=== PATIENT | male | born 1950 | race Caucasian/White ===

== ENCOUNTER 2017-05-10 12:33 | Inpatient (IN) | payer MEDICARE, BC ==
[~2017-05-10] VITALS: Ht 180.3 cm; Wt 78.2 kg
[~2017-05-10 12:33] MED LIST: IOHEXOL 350 MG/ML 100 ML BTL (for Cath Lab) OTHER ONE; IOHEXOL 350 MG/ML 50 ML BTL (for Cath Lab) OTHER ONE
[2017-05-10 12:41] VITALS: BP 130/81; PULSE 71; RESP 18; TEMP 97.9; O2SAT 100
[2017-05-10] MEDS ORDERED: SODIUM CHLORIDE 0.9% FLUSH 10 ML FLUSH IVF PRN (12:45)
[2017-05-10 12:47] VITALS: BP 130/81; PULSE 66; PULSE 68; RESP 18; TEMP 97.9; O2SAT 100
[2017-05-10 13:07] LABS: AUTOMATED NEUTROPHIL # 10.3 TH/MM3 (1.8-7.7); BASOPHIL # 0.1 TH/MM3 (0-0.2); BASOPHIL % 0.7 % (0.0-2.0); EOSINOPHIL # 0.1 TH/MM3 (0-0.4); EOSINOPHIL % 0.5 % (0.0-4.0); HEMATOCRIT 44.1 % (39.0-51.0); HEMOGLOBIN 15.2 GM/DL (13.0-17.0); LYMPH % 14.6 % (9.0-44.0); LYMPHOCYTE # 1.9 TH/MM3 (1.0-4.8); MEAN CELL VOLUME 90.3 FL (80.0-100.0); MEAN CORPUSCULAR HEMOGLOBIN 31.1 PG (27.0-34.0); MEAN CORPUSCULAR HGB CONC 34.4 % (32.0-36.0); MEAN PLATELET VOLUME 9.2 FL (7.0-11.0); MONO % 4.7 % (0.0-8.0); MONOCYTE # 0.6 TH/MM3 (0-0.9); NEUT % 79.5 % (16.0-70.0); PLATELET COUNT 175 TH/MM3 (150-450); RED BLOOD COUNT 4.88 MIL/MM3 (4.50-5.90); RED CELL DISTRIBUTION WIDTH 14.5 % (11.6-17.2); WHITE BLOOD COUNT 12.9 TH/MM3 (4.0-11.0)
[2017-05-10 13:20] LABS: PROTHROMBIN TIME - PATIENT 10.6 SEC (9.8-11.6)
--- NOTE | 2017-05-10 13:20 | PD ---
HPI Chief Complaint: Chest Pain Time Seen by Provider: 12:42 Travel History International Travel<30 days: No Contact w/Intl Traveler<30days: No Traveled to known affect area: No History of Present Illness HPI 66 y/o male presents with episode where he passed out. gave him rescue breathing but did not perform CPR per the ambulance team. When the fire team got on scene given his concerning EKG findings they called a STEMI alert. They gave him 3 nitroglycerin, aspirin, 6 of morphine and 4 Zofran. He continues to have chest pain. He states he's been having chest pain for 3 days. He states it goes down his left arm. He denies any other concurrent complaints. He denies specific modifying factors. Quality is pressure. [facility] Past Medical History Medical History: Denies Significant Hx Past Surgical History Surgical History: No Previous Surgery Social History Alcohol Use: Yes Tobacco Use: Yes Substance Use: No Allergies-Medications (Allergen,Severity, Reaction): Coded Allergies: penicillin G (Verified Allergy, Severe, Swelling, 05/10/17) Reported Meds & Prescriptions Reported Meds & Active Scripts Active No Active Prescriptions or Reported Medications Review of Systems Except as stated in HPI: all other systems reviewed are Neg Physical Exam Narrative GENERAL: 66 y/o male in no apparent distress SKIN: Focused skin assessment warm/dry. HEAD: Atraumatic. Normocephalic. EYES: Pupils equal and round. No scleral icterus. No injection or drainage. ENT: No nasal bleeding or discharge. Mucous membranes pink and moist. NECK: Trachea midline. No JVD. CARDIOVASCULAR: Regular rate and rhythm. RESPIRATORY: No accessory muscle use. Clear to auscultation. Breath sounds equal bilaterally. GASTROINTESTINAL: Abdomen soft, non-tender, nondistended. MUSCULOSKELETAL: No obvious deformities. No clubbing. No cyanosis. NEUROLOGICAL: Awake and alert. No obvious cranial nerve deficits. Motor grossly within normal limits. Normal speech. Data Data Last Documented VS Vital Signs Date Time Temp Pulse Resp B/P (MAP) Pulse Ox O2 Delivery O2 Flow Rate FiO2 05/10/17 14:03 05/10/17 12:47 66 18 100 Nasal Cannula 2.00 05/10/17 12:47 97.9 Orders Orders Electrocardiogram (05/10/17 12:42) B-Type Natriuretic Peptide (05/10/17 12:42) Ckmb (Isoenzyme) Profile (05/10/17 12:42) Complete Blood Count With Diff (05/10/17 12:42) Comprehensive Metabolic Panel (05/10/17 12:42) Magnesium (Mg) (05/10/17 12:42) Prothrombin Time / Inr (Pt) (05/10/17 12:42) Act Partial Throm Time (Ptt) (05/10/17 12:42) Troponin I (05/10/17 12:42) Chest, Single Ap (05/10/17 12:42) Ecg Monitoring (05/10/17 12:42) Bilateral Bp Monitoring (05/10/17 12:42) Iv Access Insert/Monitor (05/10/17 12:42) Oximetry (05/10/17 12:42) Sodium Chloride 0.9% Flush (Ns Flush) (05/10/17 12:45) Heparin-Ns/Pf Flush Bag (Heparin-Ns/Pf F (05/10/17 13:54) Cardiac Catheterization (05/10/17 ) Heparin-Ns/Pf Flush Bag (Heparin-Ns/Pf F (05/10/17 14:19) Midazolam Inj (Versed Inj) (05/10/17 14:19) Fentanyl Inj (Fentanyl Inj) (05/10/17 14:20) Heparin Inj (Heparin Inj) (05/10/17 14:20) Nitroglycerin Inj (Nitroglycerin Inj) (05/10/17 14:20) Verapamil Inj (Isoptin Inj) (05/10/17 14:20) Admit Order (Ed Use Only) (05/10/17 14:39) Labs Laboratory Tests Test 05/10/17 12:53 White Blood Count 12.9 TH/MM3 Red Blood Count 4.88 MIL/MM3 Hemoglobin 15.2 GM/DL Hematocrit 44.1 % Mean Corpuscular Volume 90.3 FL Mean Corpuscular Hemoglobin 31.1 PG Mean Corpuscular Hemoglobin Concent 34.4 % Red Cell Distribution Width 14.5 % Platelet Count 175 TH/MM3 Mean Platelet Volume 9.2 FL Neutrophils (%) (Auto) 79.5 % Lymphocytes (%) (Auto) 14.6 % Monocytes (%) (Auto) 4.7 % Eosinophils (%) (Auto) 0.5 % Basophils (%) (Auto) 0.7 % Neutrophils # (Auto) 10.3 TH/MM3 Lymphocytes # (Auto) 1.9 TH/MM3 Monocytes # (Auto) 0.6 TH/MM3 Eosinophils # (Auto) 0.1 TH/MM3 Basophils # (Auto) 0.1 TH/MM3 CBC Comment DIFF FINAL Differential Comment Prothrombin Time 10.6 SEC Prothromb Time International Ratio 1.0 RATIO Activated Partial Thromboplast Time 28.5 SEC Blood Urea Nitrogen 19 MG/DL Creatinine 1.02 MG/DL Random Glucose 130 MG/DL Total Protein 7.0 GM/DL Albumin 3.6 GM/DL Calcium Level 8.8 MG/DL Magnesium Level 2.0 MG/DL Alkaline Phosphatase 56 U/L Aspartate Amino Transf (AST/SGOT) 15 U/L Alanine Aminotransferase (ALT/SGPT) 20 U/L Total Bilirubin 0.4 MG/DL Sodium Level 134 MEQ/L Potassium Level 3.6 MEQ/L Chloride Level 100 MEQ/L Carbon Dioxide Level 24.8 MEQ/L Anion Gap 9 MEQ/L Estimat Glomerular Filtration Rate 73 ML/MIN Total Creatine Kinase 93 U/L Troponin I LESS THAN 0.02 NG/ML B-Type Natriuretic Peptide 9 PG/ML MDM Medical Decision Making Medical Screen Exam Complete: Yes Emergency Medical Condition: Yes Medical Record Reviewed: Yes (pmh confirmed) Interpretation(s) EKG shows ST depression without significant ST segment elevation and was sent to the gauge and weigh machine operator EMS EKG shows inferior lateral ST depression with mild aVR elevation CBC & BMP Diagram 05/10/17 12:53 Total Protein 7.0, Albumin 3.6, Calcium Level 8.8, Magnesium Level 2.0, Alkaline Phosphatase 56, Aspartate Amino Transf (AST/SGOT) 15, Alanine Aminotransferase (ALT/SGPT) 20, Total Bilirubin 0.4 Last 24 hours Impressions Chest X-Ray 05/10/17 1242 Signed Impressions: Service Date/Time: Wednesday, May 10, 2017 13:15 - CONCLUSION: 1. No acute cardiopulmonary disease. Gera Haas MD Differential Diagnosis Angina, ME, arrhythmia Narrative Course Will check blood work, EKG, chest x-ray and discuss with cardiology Patient discussed with gauge and weigh machine operator and agrees to proceed with heart catheterization. He'll be admitted to the hospital for further care Physician Communication Physician Communication dr martinez states no stemi, will come and see patient dr matrinez states no additional meds for now will likely cath and to admit to medicine dr franks agrees to admit Diagnosis Primary Impression: Unstable angina Additional Impression: Syncope Qualified Codes: R55 - Syncope and collapse Admitting Information Admitting Physician Requests: Admit Scripts No Active Prescriptions or Reported Meds Maegan Nguyen MD May 10, 2017 13:20
[2017-05-10 13:27] LABS: ALBUMIN 3.6 GM/DL (3.4-5.0); AST (GOT) 15 U/L (15-37); BICARBONATE 24.8 MEQ/L (21.0-32.0); BLOOD UREA NITROGEN 19 MG/DL (7-18); CALCIUM 8.8 MG/DL (8.5-10.1); CHLORIDE 100 MEQ/L (98-107); CREATININE 1.02 MG/DL (0.60-1.30); GLOMERULAR FILTRATION RATE 73 ML/MIN (>89); GLUCOSE,RANDOM 130 MG/DL (74-106); SODIUM (NA) 134 MEQ/L (136-145)
[2017-05-10 13:29] LABS: ALT (GPT) 20 U/L (12-78)
[2017-05-10 13:32] LABS: ALKALINE PHOSPHATASE 56 U/L (45-117); TOTAL BILIRUBIN ADULT 0.4 MG/DL (0.2-1.0); TROPONIN I LESS THAN 0.02 NG/ML (0.02-0.05)
[2017-05-10] MEDS ORDERED: HEPARIN-NS/PF FLUSH BAG 2,000 ML IV FLUSH ONE ×2 (13:54→14:19)
--- NOTE | 2017-05-10 13:59 | RADRPT ---
EXAM DATE/TIME: 05/10/2017 13:15 [place] COMPARISON: No previous studies available for comparison. INDICATIONS : Chest pain. Patient passed out and was unresponsive. MEDICAL HISTORY : None. SURGICAL HISTORY : None. ENCOUNTER: Initial ACUITY: 1 day PAIN SCORE: 5/10 LOCATION: Bilateral chest FINDINGS: A single view of the chest demonstrates the lungs to be symmetrically aerated without evidence of mas s, infiltrate or effusion. The cardiomediastinal contours are unremarkable. Osseous structures are intact. CONCLUSION: 1. No acute cardiopulmonary disease. Gera Haas MD on May 10, 2017 at 13:51 Board Certified Radiologist. This report was verified electronically.
[2017-05-10] MEDS ORDERED: MIDAZOLAM HCL 2 MG/2 ML VIAL ONE (14:19)
[2017-05-10] MEDS ORDERED: VERAPAMIL HCL 5 MG/2 ML VIAL ONE (14:20)
[2017-05-10] MEDS ORDERED: HEPARIN SODIUM - IV 10,000 UNITS/10 ML VIAL ONE (14:20)
[2017-05-10] MEDS ORDERED: NITROGLYCERIN INJ 5 ML ONE (14:20)
[2017-05-10] MEDS ORDERED: TICAGRELOR 90 MG TAB PO ONE (16:13)
[2017-05-10] MEDS ORDERED: TIROFIBAN INFUSION INJ 250 ML IV ONE (16:30)
[2017-05-10] MEDS ORDERED: TIROFIBAN INFUSION INJ 250 ML IV SCH (16:31)
[2017-05-10] MEDS ORDERED: SODIUM CHLOR 0.9% 1000 ML INJ 1,000 ML IV SCH (16:31)
[2017-05-10] MEDS ORDERED: CLOPIDOGREL 300 MG TAB ONE (16:36)
[2017-05-10] MEDS ORDERED: ACETAMINOPHEN 325 MG TAB PO PRN (16:45)
[2017-05-10] MEDS ORDERED: oxyCODONE/ACETAMINOPHEN 10 MG/325 MG TAB PO PRN (16:45)
[2017-05-10] MEDS ORDERED: oxyCODONE/ACETAMINOPHEN 5 MG/325 MG TAB PO PRN (16:45)
[2017-05-10] MEDS ORDERED: ONDANSETRON HCL 4 MG/2 ML VIAL IVP PRN (16:45)
[2017-05-10] MEDS ORDERED: MORPHINE SULFATE 2 MG/ML INJ IV PUSH PRN (16:45)
--- NOTE | 2017-05-10 16:53 | CATHPROC ---
[email or web address] HIS Report Study Information Study Number Admission Scheduled Start Study Start [id number] May 10 2017 12:33PM 05/10/2017 May 10 2017 2:08PM Study Type [place] Service Left/Possible PCI Cardiac Catheterization Admit Source Facility Department Emergency department [facility] - Senior Net C Developer Physician and Clinical Staff Initial Buck Mahoney Customs Verifier Roselia Acosta,KATIE Other Niesha Doherty,FUNERAL PLANNER TECH2 Recorder Roselyn Mansfield ,RT(R) ScrKarin Noe,RT(R) Procedures Performed Procedure Location (Site) Vessel Name Coronary Angiograms LCA Left Coronary Coronary Angiograms RCA Right Coronary Drug Eluting Inflatio OM1 Mid CIRC L Heart Cath PTCA OM1 Mid CIRC Wire insertion Fem Art (right) Femoral Art Wire insertion Radial (right) Radial Art. Equipment Time Money Order Clerk Description Size Mfg Part Number Used/Scraped WIRE, BALANCE MIDDLEWEIGHT [id number] 14:56 [employer] 300CM Used 300CM *[id number] WIRE, BALANCE MIDDLEWEIGHT [id number] 15:26 [employer] 300CM Used 300CM *[id number] TRANSDUCER, TRUWAVE [id number] 14:14 RODRIGUEZ CAMILO * Used W/STOCKCOCK *[id number] 534-518T *[id number] 534-521T *[id number] 14:14 [employer] PACK, CCL CUSTOM * Used *[id number] 14:14 [employer] SUPPORT, ARTERIAL ADULT 25294 *[id number] Used BALLOON, 1.25 X 6MM SPRINTER [id number] 15:02 MEDTRONIC 6MM Used LEGEND OTW *[id number] 15:25 MEDTR[employer]IC BALLOON, 2.0 X 12MM EUPHORA 12MM Used *[id number] BALLOON, 2.25 X 12MM NC [id number] 15:58 MEDTRONIC 12MM Used EUPHORA *[id number] 16:06 MEDTRONIC STENT, 2.25 18MM ALICIA 2.25 18MM Used *[id number] 15:38 MEDTR[employer]IC STENT, 2.25 22MM ALICIA 2.25 22MM [id number] 16:11 MEDTRONIC STENT, 2.75 15MM ALICIA 2.75 15MM Used *[id number] 14:56 MEDTR[employer]IC/AVE EBU 3.5 Z2 GUIDE CATHETER FR 6 Used *[id number] [id number] 15:34 Angella Joy 30 CHEYENNE INDEFLATOR Used *[id number] BAND, RADIAL COMPRESSION TR [id number] 16:27 [employer] MEDICAL 24CM Used SHORT 24 *[id number] 14:14 Angella Joy WIRE, EXCHANGE 260CM 3MMJ 260CM Used *[id number] 14:14 NAMIC MANIFOLD, 4 PORT * Used *[id number] 14:14 NYCOMED OMNIPAQUE, 350 MG, 150ML 150ML [id number] Used 16:19 NYCOMED OMNIPAQUE, 350 MG, 150ML 150ML [id number] Used 16:19 NYCOMED OMNIPAQUE, 350 MG, 150ML 150ML [id number] Used [id number] 14:14 [facility] BLANKET,WARM AIR CCL * Used *[id number] SHEATH, FR6 TRANSRADIAL [id number] 14:14 [place] FR 6 Used SLENDER 10CM *[id number] WIRE, RUNTHROUGH NS FLOPPY [id number] 15:15 [employer] MEDICAL 180CM Used .014 180CM *[id number] Equipment Model, Serial, Lot Number and Expiration Data Description Model Number Serial Number Lot Number Expiration Date BALLOON, 2.25 X 12MM AR [id number] 12-21-2018 EUPHORA STENT, 2.25 18MM ALICIA [id number] 01-18-2019 STENT, 2.25 22MM ALICIA [id number] 12-04-2018 STENT, 2.75 15MM ALICIA [id number] 01-14-2019 History: Current Medications Medication Dosage/Unit Route Frequency Last Date/Time Taken ASA History: Allergies Allergy Reaction penicillin G Swelling History: Risk Factors Family History of Hypertension Dyslipidemia Previous NH Previous Heart Failure Premature CAD No No Yes No No Prior Valve Prior PCI Prior CABG Surgery No No No Cerebrovascular Peripheral Artery Chronic Lung On Dialysis Diabetes Disease Disease Disease No No No No No History: Stress Tests Stress or Imaging Studies Performed No History: Other Current Smoker Method Packs a Day Years Used Pack Years Yes Cigarettes 2 50 100 Labs Hgb (g/dl) Hct (%) RBC (MIL/MM3) WBC (l/cumm) Platelets (thousands) 11.60-17.00 35.00-51.00 4.00-5.90 4.00-11.00 150.00-450.00 15.2 44.1 4.8 12.9 175 Glucose (mg/dl) BUN (mg/dl) Creatinine (mg/dl) BUN:Creatinine (1:x) 74.00-106.00 7.00-18.00 0.50-1.30 10.00-20.00 130 19 1.0 19 Na (meq/l) K (meq/l) Cl (meq/l) CO2 (mmol/L) Ca (mg/dl) 136.00-145.00 3.50-5.10 98.00-107.00 21.00-32.00 8.50-10.10 134 3.6 100 24.8 8.8 PT (sec) PTT (sec) INR (PTT:PT) 9.80-11.60 24.30-30.10 0.90-1.10 10.6 28.5 1 Troponin I (ng/ml) CPK (u/l) CPK-MB (ng/ML) 0.02-0.05 26.00-308.00 0.50-3.60 0.02 93 Not Drawn Medication Medication Total Dose (Bolus/Oral) Medication Total Dosage/Unit 1% XYLOCAINE 15 mL ADENOSINE 48 mcg AGGRASTAT BOLUS 37.5 mL FENTANYL 25 mcg HEPARIN 6500 units NTG (IC) 150 mcg PLAVIX 600 mg RADIAL COCKTAIL 5 mL (Bolus) VERSED 0.5 mg Medications (Bolus/Oral) Medication Time Given Dosage/Unit Administered By Reason VERSED 05/10/2017 2:29:45 PM 0.5 mg Roselia Acosta 0.5 mg VERSED given in lab by Roselia Acosta, KATIE in Left Antecubital via Peripheral IV. Ordered by Buck Andres FENTANYL 05/10/2017 2:30:02 PM 25 mcg Roselia Acosta 25 mcg FENTANYL given in lab by Roselia Acosta, KATIE in Left Antecubital via Peripheral IV. Ordered by Buck Smith 1% XYLOCAINE 05/10/2017 2:30:09 PM 15 mL Buck Smith 15 mL 1% XYLOCAINE given in lab by Buck Smith in Right Radial via Subcutaneous. Ordered by Buck Andres Ntg 200mcg Verapamil 2.5mg Heparin RADIAL COCKTAIL 05/10/2017 2:31:16 PM 5 mL (Bolus) Buck Smith 3000U 5 mL (Bolus) RADIAL COCKTAIL given in lab by Buck Smith in Right Radial via Radial. Using [S olution Name]. Ordered by Buck Smith Reason: Ntg 200mcg Verapamil 2.5mg Heparin 3000U. HEPARIN 05/10/2017 2:58:22 PM 4500 units Roselia Acosta 4500 units HEPARIN given in lab by Roselia Acosta, KATIE in Left Antecubital via Peripheral IV. Ordered by Buck Smith HEPARIN 05/10/2017 3:35:49 PM 2000 units Roselia Acosta 2000 units HEPARIN given in lab by Roselia Acosta RN in Left Antecubital via Peripheral IV. Ordered by Buck Smith NTG (IC) 05/10/2017 3:46:25 PM 150 mcg Buck Smith 150 mcg NTG (IC) given in lab by Buck Smith via Intra-coronary. Ordered by Buck Smith ADENOSINE 05/10/2017 3:52:58 PM 24 mcg Buck Smith 24 mcg ADENOSINE given in lab by Buck Smith via Intra-coronary. Ordered by Buck Smith ADENOSINE 05/10/2017 4:02:15 PM 24 mcg Buck Smith 24 mcg ADENOSINE given in lab by Buck Smith via Intra-coronary. Ordered by Buck Smith AGGRASTAT BOLUS 05/10/2017 4:37:49 PM 37.5 mL Roselia Acosta 37.5 mL AGGRASTAT BOLUS given in lab by Roselia Acosta, KATIE via Peripheral IV. Ordered by Carter Smith PLAVIX 05/10/2017 4:40:22 PM 600 mg Roselia Acosta 600 mg PLAVIX given in lab by Roselia Acosta, KATIE via Oral. Ordered by Buck Smith Medication (Drip) Medication Time Given Dosage/Unit Concentration/Unit Diluent (ml) Solution AGGRASTAT DRIP 05/10/2017 4:38:10 PM 0.675 mL/hr 12.5 mL 250 NaCl .9 0.675 mL/hr AGGRASTAT DRIP given in lab by Roselia Acosta, RN via Peripheral IV. Pump/Drip Flow = 13 .5 ml/hr using NaCl .9 with a concentration of 12.5 mL in 250 ml. Ordered by Buck Smith IV Solutions 05/10/2017 2:15:03 PM 50 mL (IV) NaCl .9 IV Solutions given in lab by Roselia Acosta, RN in Left Antecubital via Peripheral IV. Pump/Drip Cory w using NaCl .9. Ordered by Buck Smith. NIPRIDE 05/10/2017 4:05:32 PM 50 mcg 50 mcg NIPRIDE given in lab by Buck Smith via Intra-coronary. Ordered by Buck Smiht . Initial Case Assessment Cardiovascular HR Rhythm NIBP Chest Pain 67 sr 140/83 4 Edema Present Skin color Skin None Normal Warm Dry Circulatory - Right Pulses Dorsalis Pedis Femoral Radial 1 1 1 Scale (0,1,2,3,4,d) Circulatory - Left Pulses Dorsalis Pedis Femoral Radial 1 1 Scale (0,1,2,3,4,d) Neurological State Oriented to time-place- Alert Moves all extremities person Respiration - General Respiration Rate SpO2 (%) O2 (lpm) (B/min) 10 98 2 Final Case Assessment Cardiovascular HR Rhythm NIBP Chest Pain 67 sr 140/83 1 Edema Present Skin color Skin None Normal Warm Dry Circulatory - Right Pulses Dorsalis Pedis Femoral Radial 1 1 1 Scale (0,1,2,3,4,d) Circulatory - Left Pulses Dorsalis Pedis Femoral Radial 1 1 Scale (0,1,2,3,4,d) Neurological State Oriented to time-place- Alert Moves all extremities person Respiration - General Respiration Rate SpO2 (%) O2 (lpm) (B/min) 10 98 2 Chronological Log Time Study Chronological Log 14:09:18 Patient arrived via Bed. 14:09:19 Patient Name, D.O.B, / Armband Verified By R.N. 14:09:20 Pre-op and post- op instructions given; patient acknowledges understanding of instructions. Verbal Stimulation=~VERBAL~ Physical Stimulation=~PHYSICAL~ Airway=~AIRWAY~ Respiration=~RESPIR ATION~ 14:09:21 TOTAL=~TOTAL~. (0=absent, 1=limited, 2=present) 14:09:24 Consent signed by the physician and the patient and verified by the Senior Net C Developer staff. 14:09:25 Presedation assessment performed by Senior Net C Developer RN. 14:09:27 Allens test performed on the left radial and ulnar artery. 14:09:31 Patient has been NPO for More than 6Hrs. 14:09:32 Skin Breakdown-none per patient 14:09:34 Disposable Defibrillator Pads Placed On Patient. 14:09:35 Eliezer Prominences Protected 14:14:51 A # 18 IV was noted in the Antecubital (left). Grade = 0 IV Solutions given in lab by Roselia Acosta, RN in Left Antecubital via Peripheral IV. Pump/Dr ip Flow using NaCl .9. 14:15:03 Ordered by Buck Smith 14:15:04 A # 20 IV was noted in the Antecubital (right). Grade = 0 14:15:18 History and physical on the chart or being dictated. 14:15:28 MD arrived. Vitals capture started with the following parameters, Patient=Adult, Interval=5 min, Initial Pr tzsnym=647 mmHg, 14:16:07 Deflation Rate=5 mmHg, Cuff placed on Unknown 14:16:43 HR=91 bpm, VWYC=115/83 mmhg, SpO2=99.0 %, Resp=5 B/min 14:17:07 Reference ECG taken Assessment: Initial Case, HR=67 BPM, Rhythm=sr, VAWK=339/83 mmhg, Chest Pain=4, Edema=None, Col or=Normal, Skin = Warm, Dry Right Pulses: Eugenio Ped=1, Femoral=1, Radial=1 14:17:13 Left Pulses: Eugenio Ped=1, Femoral=1 Neurological: State=Alert, Ox3, RENEE Respiration: Resp=10 B/min, SpO2=98 %, O2=2 lpm 14:21:40 HR=55 bpm, YKLX=334/80 mmhg, SvA0=011.0 %, Resp=13 B/min, Pain=4, Dung=8, Mathews=2 14:22:08 Pressure channel 1 zeroed. 14:24:16 MD paged 14:25:37 MD arrived. 14:25:44 Reference ECG taken 14:26:07 Right Radial and groin(s) prepped with 2% chlorhexidine, and draped after a 3 min. waiting time. 14:26:37 HR=50 bpm, TVRU=181/84 mmhg, GcI3=536 %, Resp=5 B/min, Pain=4, Dung=8, Mathews=2 Time Out. Correct patient, correct procedure, correct physician, power injector not loaded with contrast with surgical 14:28:44 team present. Time Out Concurred by MD and individual staff in procedure. 14:29:41 Case Start 0.5 mg VERSED given in lab by Roselia Acosta, RN in Left Antecubital via Peripheral IV. Ordere d by Buck Smith 14:29:45 G. 25 mcg FENTANYL given in lab by Roselia Acosta, RN in Left Antecubital via Peripheral IV. Orde red by Luis 14:30:02 Buck Tadeo. 15 mL 1% XYLOCAINE given in lab by Buck Smith in Right Radial via Subcutaneous. Ordere d by Luis 14:30:09 Buck Tadeo. 14:30:43 Access site was Right Radial Artery. A SHEATH, FR6 TRANSRADIAL SLENDER 10CM FR 6 was advanced into the Radial (right) using the Perc utaneous 14:30:53 technique. 5 mL (Bolus) RADIAL COCKTAIL given in lab by Buck Smith in Right Radial via Radial. Us ing [Solution Name]. 14:31:16 Ordered by Buck Smith. Reason: Ntg 200mcg Verapamil 2.5mg Heparin 3000U. 14:31:40 HR=59 bpm, YGRZ=664/89 mmhg, ZrA7=030.0 %, Resp=5 B/min, Pain=4, Dung=8, Mathews=2 A JR 4.0 INFINITI CATHETER FR 5 was advanced over a wire. OMNIPAQUE, 350 MG, 150ML 150ML was us ed for 14:32:56 injections. Recorded Pressure: LV, HR=63, Condition=Condition 1 14:34:11 (Left Ventricle) LV 125/6/13 Recorded Pressure: LV, Ao, HR=65, Condition=Condition 1 14:34:27 (Left Ventricle) LV ?/?/?, (Aorta) Ao 132/80/104 14:35:29 The RCA was injected and visualized at various angles. OMNIPAQUE, 350 MG, 150ML 150ML used . After removing the current catheter a JL 3.5 INFINITI CATHETER FR 5 was advanced over a WIRE, E XCHANGE 260CM 14:36:13 3MMJ 260CM. 14:36:45 HR=67 bpm, PQMU=877/80 mmhg, SpO2=99.0 %, Resp=8 B/min, Pain=4, Dung=8, Mathews=2 14:39:22 The LCA was injected and visualized at various angles. OMNIPAQUE, 350 MG, 150ML 150ML used . 14:41:44 HR=68 bpm, MTWK=043/82 mmhg, SpO2=99.0 %, Resp=18 B/min, Pain=4, Dung=8, Mathews=2 14:46:41 HR=60 bpm, WOFU=423/79 mmhg, SpO2=98.0 %, Resp=8 B/min, Pain=4, Dung=8, Mathews=2 14:51:42 HR=52 bpm, OPUR=041/84 mmhg, GtD7=051.0 %, Resp=9 B/min, Pain=4, Dung=8, Mathews=2 14:55:53 Catheter was removed A EBU 3.5 Z2 GUIDE CATHETER FR 6 was advanced over a wire. OMNIPAQUE, 350 MG, 150ML 150ML was u sed for 14:56:35 injections. 14:56:43 HR=54 bpm, CWTS=278/82 mmhg, TvX5=111.0 %, Resp=13 B/min, Pain=4, Dung=8, Mathews=2 4500 units HEPARIN given in lab by Roselia Acosta, RN in Left Antecubital via Peripheral IV. O rdered by Luis, 14:58:22 Buck Vitale 15:01:44 HR=52 bpm, VQPV=498/82 mmhg, ApG7=988.0 %, Resp=12 B/min, Pain=4, Dung=8, Mathews=2 15:04:33 A WIRE, BALANCE MIDDLEWEIGHT 300CM 300CM was inserted via Radial (right). 15:05:02 BMW Wire removed 15:05:12 A WIRE, EXCHANGE 260CM 3MMJ 260CM was inserted via Radial (right). 15:06:38 260J Wire removed 15:06:43 HR=57 bpm, SPRI=851/90 mmhg, WrH2=245.0 %, Resp=14 B/min, Pain=4, Dung=8, Mathews=2 15:07:33 A WIRE, BALANCE MIDDLEWEIGHT 300CM 300CM was inserted via Radial (right). 15:11:26 Interventional wire has crossed the lesion 15:11:42 HR=51 bpm, WUTB=221/87 mmhg, RjP7=834.0 %, Resp=10 B/min, Pain=4, Dung=8, Mathews=2 A BALLOON, 1.25 X 6MM SPRINTER LEGEND OTW 6MM was inserted over WIRE, BALANCE MIDDLEWEIGHT 300C M 15:12:23 300CM via the Radial (right). 15:16:03 [employer] Wire removed 15:16:25 A WIRE, RUNTHROUGH NS FLOPPY .014 180CM 180CM was inserted via Radial (right). 15:16:44 HR=51 bpm, ANZR=099/89 mmhg, SpO2=99.0 %, Resp=12 B/min, Pain=4, Dung=8, Mathews=2 15:20:04 Runthrough Wire removed 15:21:47 HR=52 bpm, CMDS=200/91 mmhg, SpO2=99.0 %, Resp=12 B/min, Pain=4, Dung=8, Mathews=2 15:23:43 A WIRE, BALANCE MIDDLEWEIGHT 300CM 300CM was inserted via Radial (right). 15:26:46 HR=51 bpm, XOHB=151/90 mmhg, VnK5=631.0 %, Resp=12 B/min, Pain=4, Dung=8, Mathews=2 15:28:55 [employer] Wire removed 15:29:02 A WIRE, BALANCE MIDDLEWEIGHT 300CM 300CM was inserted via Fem Art (right). 15:30:03 Balloon Removed. 15:31:49 HR=49 bpm, NSPQ=662/82 mmhg, DkX2=711.0 %, Resp=15 B/min, Pain=4, Dung=8, Mathews=2 A BALLOON, 2.0 X 12MM EUPHORA 12MM was inserted over WIRE, BALANCE MIDDLEWEIGHT 300CM 300CM via the 15:32:30 Radial (right). A BALLOON, 2.0 X 12MM EUPHORA 12MM over a WIRE, BALANCE MIDDLEWEIGHT 300CM 300CM in the OM1 Mid was 15:33:19 inflated using a 30 CHEYENNE INDEFLATOR at 8 cheyenne for 18 sec. A BALLOON, 2.0 X 12MM EUPHORA 12MM over a WIRE, BALANCE MIDDLEWEIGHT 300CM 300CM in the OM1 Mid was 15:33:58 inflated using a 30 CHEYENNE INDEFLATOR at 8 chey[place] for 11 sec. A BALLOON, 2.0 X 12MM EUPHORA 12MM over a WIRE, BALANCE MIDDLEWEIGHT 300CM 300CM in the OM1 Mid was 15:34:19 inflated using a 30 CHE[place]NE INDEFLATOR at 8 [place] for 10 sec. A BALLOON, 2.0 X 12MM EUPHORA 12MM over a WIRE, BALANCE MIDDLEWEIGHT 300CM 300CM in the OM1 Mid was 15:34:52 inflated using a 30 CHEYENNE INDEFLATOR at 8 cheyenne for 10 sec. 2000 units HEPARIN given in lab by Roselia Acosta RN in Left Antecubital via Peripheral IV. O rdered by Luis, 15:35:49 Buck Tadeo. 15:36:48 HR=53 bpm, XEQS=099/85 mmhg, ZrU7=071.0 %, Resp=14 B/min, Pain=4, Dung=8, Mathews=2 15:37:02 Balloon Removed. 15:38:07 Activated Clotting Time Drawn 15:41:47 HR=60 bpm, JVIR=367/84 mmhg, CxI3=141.0 %, Resp=14 B/min, Pain=4, Dung=8, Mathews=2 A STENT, 2.25 22MM ALICIA 2.25 22MM was advanced through a EBU 3.5 Z2 GUIDE CATHETER FR 6 over a WIRE, 15:42:44 BALANCE MIDDLEWEIGHT 300CM 300CM. A STENT, 2.25 22MM ALICIA 2.25 22MM was deployed using a 30 CHEYENNE INDEFLATOR at 12 atmospheres for 20 seconds 15:44:34 in the OM1 Mid. 15:45:09 Delivery device removed 15:46:25 150 mcg NTG (IC) given in lab by Buck Smith via Intra-coronary. Ordered by Buck Cuello. 15:46:52 HR=67 bpm, BZVO=799/68 mmhg, SpO2=99.0 %, Resp=12 B/min, Pain=4, Dung=8, Mathews=2 15:48:27 ACT (Normal Range 90-180) = 510 15:49:15 Activated Clotting Time Drawn 15:51:49 HR=51 bpm, WOCS=458/83 mmhg, SpO2=99.0 %, Resp=12 B/min, Pain=4, Dung=8, Mathews=2 15:52:58 24 mcg ADENOSINE given in lab by Buck Smith via Intra-coronary. Ordered by Buck Cuello. A BALLOON, 2.0 X 12MM EUPHORA 12MM was inserted over WIRE, BALANCE MIDDLEWEIGHT 300CM 300CM via the 15:55:36 Radial (right). A BALLOON, 2.0 X 12MM EUPHORA 12MM over a WIRE, BALANCE MIDDLEWEIGHT 300CM 300CM in the OM1 Mid was 15:55:48 inflated using a 30 CHEY[place]NE INDEFLATOR at 10 chey[place] for 25 sec. 15:55:59 ACT (Normal Range 90-180) = 301 15:56:48 HR=52 bpm, MORE=242/83 mmhg, XgH4=994.0 %, Resp=11 B/min, Pain=4, Dung=8, Mathews=2 15:56:53 Balloon Removed. A BALLOON, 2.25 X 12MM NC EUPHORA 12MM was inserted over WIRE, BALANCE MIDDLEWEIGHT 300CM 300CM via 15:58:24 the Radial (right). A BALLOON, 2.25 X 12MM NC EUPHORA 12MM over a WIRE, BALANCE MIDDLEWEIGHT 300CM 300CM in the OM1 Mid 15:59:10 was inflated using a 30 CHEY[place]NE INDEFLATOR at 12 cheyenne for 10 sec. A BALLOON, 2.25 X 12MM NC EUPHORA 12MM over a WIRE, BALANCE MIDDLEWEIGHT 300CM 300CM in the OM1 Mid 15:59:34 was inflated using a 30 CHEYENNE INDEFLATOR at 16 cheyenne for 10 sec. 16:00:02 Balloon Removed. 16:01:49 HR=60 bpm, QMII=307/83 mmhg, PxF2=692.0 %, Resp=11 B/min, Pain=4, Dung=8, Mathews=2 16:02:15 24 mcg ADENOSINE given in lab by Buck Smith via Intra-coronary. Ordered by Buck Cuello 16:05:32 50 mcg NIPRIDE given in lab by Buck Smith via Intra-coronary. Ordered by Buck Smith. A STENT, 2.25 18MM ALICIA 2.25 18MM was advanced through a EBU 3.5 Z2 GUIDE CATHETER FR 6 over a WIRE, 16:06:14 BALANCE MIDDLEWEIGHT 300CM 300CM. 16:06:46 HR=52 bpm, LADO=293/87 mmhg, SpO2=99.0 %, Resp=11 B/min, Pain=4, Dung=8, Mathews=2 A STENT, 2.25 18MM ALICIA 2.25 18MM was deployed using a 30 CHEY[place]NE INDEFLATOR at 12 atmospheres for 20 seconds 16:08:22 in the OM1 Mid. 16:08:51 Re-inflated the stent balloon in the OM1 Mid to 14 [place] for 10 seconds. 16:09:35 Delivery device removed A STENT, 2.75 15MM ALICIA 2.75 15MM was advanced through a EBU 3.5 Z2 GUIDE CATHETER FR 6 over a WIRE, 16:11:29 BALANCE MIDDLEWEIGHT 300CM 300CM. 16:11:47 HR=53 bpm, LSDL=432/92 mmhg, YlV9=422.0 %, Resp=12 B/min, Pain=4, Dung=8, Mathews=2 A STENT, 2.75 15MM ALICIA 2.75 15MM was deployed using a 30 [place] INDEFLATOR at 14 atmospheres for 10 seconds 16:12:17 in the OM1 Mid. A STENT, 2.75 15MM ALICIA 2.75 15MM was deployed using a 30 [place] INDEFLATOR at 14 atmospheres for 10 seconds 16:12:49 in the OM1 Mid. A STENT, 2.75 15MM ALICIA 2.75 15MM was deployed using a 30 CHE[place]NE INDEFLATOR at 16 atmospheres for 6 seconds in 16:13:06 the OM1 Mid. 16:13:47 Delivery device removed 16:16:48 HR=70 bpm, LFYS=481/84 mmhg, HeC5=699.0 %, Resp=14 B/min, Pain=4, Dung=8, Mathews=2 16:18:58 Wire removed 16:21:49 HR=62 bpm, APEN=150/86 mmhg, IgC7=222.0 %, Resp=12 B/min, Pain=4, Dung=8, Mathews=2 16:26:22 Catheter was removed 16:26:46 HR=67 bpm, OEAL=609/95 mmhg, QdL3=176.0 %, Resp=13 B/min, Pain=4, Dung=8, Mathews=2 16:27:01 Case End Assessment: Final Case, HR=67 BPM, Rhythm=sr, SJYA=159/83 mmhg, Chest Pain=1, Edema=None, [place] r=Normal, Skin = Warm, Dry Right Pulses: Eugenio Ped=1, Femoral=1, Radial=1 16:27:24 Left Pulses: Eugenio Ped=1, Femoral=1 Neurological: State=Alert, Ox3, RENEE Respiration: Resp=10 B/min, SpO2=98 %, O2=2 lpm 16:27:42 Catheter(s) removed without difficulty Radial Compression Device Used. 11 mLs of air placed in BAND, RADIAL COMPRESSION TR SHORT 24 2 4CM. Affected 16:27:56 hand 100 % O2 saturation. 16:28:02 Sterile dressing applied to site 16:28:03 No case complications noted. 16:28:09 Cine recording checked. 16:28:11 Bedside Report will be given. 16:28:17 Implantable Device card placed in patient's chart. 16:28:23 A Left Heart Cath was performed. 16:32:26 HR=56 bpm, TYUT=414/88 mmhg, TrB4=152.0 %, Resp=13 B/min, Pain=4, Dung=8, Mathews=2 16:36:50 HR=57 bpm, OVGP=151/88 mmhg, GpH6=596.0 %, Resp=12 B/min, Pain=4, Dung=8, Mathews=2 16:37:49 37.5 mL AGGRASTAT BOLUS given in lab by Roselia Acosta, RN via Peripheral IV. Ordered by Buck Smith 0.675 mL/hr AGGRASTAT DRIP given in lab by Roselia Acosta, RN via Peripheral IV. Pump/Drip Fl ow = 13.5 ml/hr 16:38:10 using NaCl .9 with a concentration of 12.5 mL in 250 ml. Ordered by Buck Smith 16:39:37 Vitals capture stopped. 16:40:22 600 mg PLAVIX given in lab by Roselia Acosta RN via Oral. Ordered by Buck Smith 16:42:59 Patient moved to [facility] End Study - Contrast Media Used In Study Contrast Total Opened (mL) Total Used (mL) Total Wasted (mL) Omnipaque 210 210 0 End Study - Maximum Contrast Load Max Contrast Load (mL) 375.0 End Study - Radiation Exposure Fluoro Time (minutes) 21.4 End Study - Sheaths Sheaths Pulled By Sheath Hold Time (min) Karin Baker End Study - Patient Disposition Complications Transferred To Interventional Outcome No Critical Care Bed successful
--- NOTE | 2017-05-10 17:44 | MA ---
cc: Buck Smith DO DATE: 05/10/2017 DATE OF PROCEDURE: 05/10/2017 PROCEDURE PERFORMED: Left heart catheterization, coronary angiogram, moderate sedation 18 minutes, Rosholt drug-eluting stent x 3 (proximal 2.75 x 15, mid 2.25 x 22, distal 2.25 x 18 overlap) to first obtuse marginal, complex case. PREPROCEDURE DIAGNOSES: Continual chest pain on medications, syncope, arrival as ST-elevation myocardial infarction alert. POSTPROCEDURE DIAGNOSES: Multivessel coronary artery disease with occluded obtuse marginal. MEDICATIONS: Versed 0.5 mg, fentanyl 25 mcg, nitro 200 mcg, heparin 9500 units, adenosine 48 mcg, Nipride 50 mcg, Aggrastat bolus of 37.5 mL, Aggrastat drip at 13.5 mL per hour, Plavix 600 mg. CONTRAST USED: 210 mL. FLUOROSCOPY: 21.4 minutes. MODERATE SEDATION: 18 minutes. ESTIMATED BLOOD LOSS: 10 mL. PROCEDURAL SUMMARY: Aravind iRchardson is a pleasant 66-year-old male who presented to [facility] Emergency [facility] after having chest pain all morning. Apparently, he syncopized and was not breathing and so his did rescue breathing at the time and he finally came back to. He was called as a STEMI alert and on arrival EKG showed no ST elevations at that time, but due to the patient's continual chest pain, I felt it was reasonable that he be taken urgently to the canvas shop laborer. Risks, benefits and alternatives were explained to him and he consented to such. He was brought to the lab and prepped in the usual sterile fashion. The right radial artery was accessed using modified Seldinger technique and placement of a 5/6 Congolese slender sheath. This was easily aspirated and flushed. A JR4 was advanced over a J-wire to the ascending aorta and across the aortic valve for measurement of left ventricular pressure. This was pulled back across the aortic valve showing no significant gradient of aortic stenosis. JR4 was used to perform selective angiography of the right coronary artery system. This is exchanged out for a JL3.5, which was used to perform selective angiography of the left coronary artery system. Please see notes below for intervention. FINDINGS: 1, Left main: Normal size vessel with 10% disease. It bifurcates into an LAD and circumflex. 2. LAD: Normal size vessel with diffuse 50% disease throughout the proximal to distal portion. It gives off a few small diagonals with the second one being large and no significant disease and the other ones all being around 1 mm. 3. Left circumflex: Normal size vessel with 70% disease in the proximal portion and then 100% occlusion distal to this. There appears to be minimal flow through this into an obtuse marginal and distally into a small left circumflex. 4. RCA: Normal size vessel with 60% stenosis in the proximal portion. Mid to distal has a 70% lesion. It gives off a PDA with a 40% disease. It then has a 90% lesion in the posterolateral branch. INDICATIONS: LVEDP 13. INTERVENTION: Mr. Richardson presented with a syncopal episode for which he stopped breathing and there was concern for possible aborted sudden cardiac . On arrival, he was having chest pain and this continued after receiving multiple medications. Because of the 100% occluded obtuse marginal with minimal flow, I felt that this may be his acute culprit and so an EBU 3.5 guide was engaged in the left main. The patient was given heparin as an anticoagulant. A BMW wire was advanced, but unable to make the turn throughout the tortuosity. An over the wire balloon was then placed and the BMW wire was exchanged for a run through. Run through wire was taken into the distal obtuse marginal. The over the wire balloon was then advanced, and after the wire was removed, contrast was injected through the over the wire balloon, which showed we were intraluminal. A BMW wire was then placed distally. A compliant balloon (2 x 12 was then used to predilate the lesion. An Chano drug-eluting stent (2.25 x 22) was then placed over the lesion and inflated. As there was slow flow distally, multiple intracoronary medications were given, including Nitroglycerin, Nipride, and adenosine. Distal to the stent was somewhat hazy and so this was then ballooned and stented with an Rosholt drug-eluting stent (2.25 x 18). The proximal portion of the vessel was also significantly diseased and so this was stented with an Chano drug-eluting stent (2.75 x 15). The wire was removed and final angiogram shows well opposed stents throughout. At the distal portion where the obtuse marginal bifurcates into an upper and lower branch, there is a small nonflow limiting dissection. Because of the size of the vessel, I would be unable to stent this and most likely would not be able to balloon it and so this will be left at this time. The patient left the canvas shop laborer cardiovascularly stable. IMPRESSION: 1. Continual chest pain concerning for coronary ischemia. 2. Possible aborted sudden cardiac . 3. Syncope. 4. Coronary artery disease. 5. Tobacco abuse. RECOMMENDATIONS: 1. Mr. Richardson underwent complex PCI as above. I will plan on placing him on Aggrastat drip due to his distal dissection. This will run for 18 hours. While on this, he will be placed on aspirin and Plavix therapy, but most likely will be switched over to Brilinta therapy once his drip has run for its 18 hours. 2. We will check a 2D echo to look at his overall left ventricular function, cardiac structure and possible valvulopathies. 3. He will be placed on aspirin, Plavix and statin therapy. Beta john therapy will be held due to his heart rates being in the 50s. He will not be placed on DOROTHY inhibitor therapy as he has received 200 mL of contrast and I want to make sure that his kidney function is stable before starting this. 4. He does have significant lesions in his RCA and these will most likely be intervened on Saturday. 5. Further recommendations will be made based on the hospital course. 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 If there are any questions, please do not hesitate to call. Buck Smith DO VGP/KIMBERLEY , 04:59 PM , 05:43 PM
[2017-05-10 18:34] VITALS: BP 153/82; PULSE 64; RESP 18; TEMP 98; O2SAT 99
[2017-05-10 20:00] VITALS: BP 138/91; PULSE 66; RESP 14; TEMP 97.9; O2SAT 98
[2017-05-10] MEDS ORDERED: ATORVASTATIN 40 MG TAB PO SCH (21:00)
[2017-05-10] MEDS: LORazepam 0.5 MG TAB PO PRN (21:36)
[2017-05-10 21:48] LABS: AUTOMATED NEUTROPHIL # 8.9 TH/MM3 (1.8-7.7); BASOPHIL % 0.3 % (0.0-2.0); EOSINOPHIL % 0.1 % (0.0-4.0); HEMATOCRIT 41.5 % (39.0-51.0); HEMOGLOBIN 14.1 GM/DL (13.0-17.0); LYMPH % 13.4 % (9.0-44.0); LYMPHOCYTE # 1.5 TH/MM3 (1.0-4.8); MEAN CORPUSCULAR HEMOGLOBIN 30.9 PG (27.0-34.0); MEAN PLATELET VOLUME 8.8 FL (7.0-11.0); MONO % 6.8 % (0.0-8.0); MONOCYTE # 0.8 TH/MM3 (0-0.9); NEUT % 79.4 % (16.0-70.0); PLATELET COUNT 153 TH/MM3 (150-450); RED BLOOD COUNT 4.56 MIL/MM3 (4.50-5.90); RED CELL DISTRIBUTION WIDTH 14.3 % (11.6-17.2); WHITE BLOOD COUNT 11.1 TH/MM3 (4.0-11.0)
--- NOTE | 2017-05-10 22:01 | HHI.HP ---
HPI Service [facility] Primary Care Physician Leonard Denis in [place], [place] Admission Diagnosis unstable angina Diagnoses: (1) Syncope (2) Unstable angina (3) Coronary artery disease (4) Tobacco abuse Chief Complaint: Syncope with collapse Travel History International Travel<30 Days: No Contact w/Intl Traveler <30 Da: No Traveled to Known Affected Are: No History of Present Illness Mr. Richardson is a pleasant 66-year-old male who is here from [facility] for a wedding and has been experiencing severe and persistent symptoms of heartburn for the past 3 days. He used warm water and baking soda with some relief and Tums with no relief. Symptoms persisted and worsened with lying down. He states that earlier today, he developed diaphoresis, weakness, dizziness and experienced a syncopal episode. According to the ER doctor's dictation, the patient's had to give him rescue breathing following his collapse. When the patient awakened, he had severe intractable chest pain despite nitroglycerin and morphine. He had accompanying nausea without vomiting. The patient was taken to cardiac catheterization by Dr. Smith and was found to have severe coronary artery disease with the first obtuse marginal coronary artery requiring 3 stents. He also has significant RCA disease and that will be addressed with a cardiac catheterization and intervention on Saturday according to Dr. Smith's notes. The patient takes no routine medications at home. He has a primary care physician in [place] - Dr. Leonard Denis. The patient states that his primary care physician found calcification of heart vessels on imaging done about 2 years ago and recommended cardiology follow-up to him but he had other health concerns requiring specialty follow-up and was not having problems with his heart at the time so he never went to the heart doctor for follow-up. The patient has a history of diverticulosis, colitis, colon polyps, left kidney cyst , and degenerative disc disease. He denies any recent fevers, chills, shortness of breath, upper respiratory symptoms, vomiting, or diarrhea. Review of Systems Except as stated in HPI: all other systems reviewed are Neg Past Family Social History Past Medical History Diverticulosis Colitis Polyps Precancerous skin lesions Prostate enlargement Left kidney cyst Chronic back pain with degenerative disc disease-herniated disc with L4-5 spinal stenosis and neuropathic leg pain (not sciatic) Denies diabetes mellitus, hypertension, asthma, emphysema, COPD, coronary artery disease, irregular heart rhythms, congestive heart failure, liver problems, DVT, PE, CVA, seizures, hypothyroidism, or cancer Past Surgical History Tonsillectomy Colonoscopy . Reported Medications Reported Meds & Active Scripts Active No Active Prescriptions or Reported Medications . Allergies: Coded Allergies: penicillin G (Verified Allergy, Severe, Swelling, 05/10/17) Family History Denies family history of CAD/DM . Social History Tobacco: Smokes 2 pack per day for at least 20 years and has been smoking since he was 16 years old Alcohol: Occasional social use Illicit Drugs: Denies . Physical Exam Vital Signs Vital Signs Date Time Temp Pulse Resp B/P (MAP) Pulse Ox O2 Delivery O2 Flow Rate FiO2 05/10/17 18:34 98.0 64 18 153/82 (105) 99 05/10/17 14:03 05/10/17 12:47 66 18 100 Nasal Cannula 2.00 05/10/17 12:47 68 18 100 Room Air 05/10/17 12:47 97.9 68 18 130/81 (97) 100 Nasal Cannula 2.00 05/10/17 12:41 97.9 71 18 130/81 (97) 100 Physical Exam CONSTITUTIONAL: This is a well-nourished, well-developed patient, in no apparent distress. INTEGUMENTARY: No rashes. Cool and dry. Right wrist with a splint -right radial approach used for cardiac catheterization. Capillary refill intact and finger movement intact. HEAD: Atraumatic. Normocephalic. EYES: No scleral icterus. No injection or drainage. ENT: Nose without bleeding, purulent drainage. NECK: Trachea midline. No JVD or lymphadenopathy. CARDIOVASCULAR: Regular rate and rhythm without murmurs, gallops, or rubs. RESPIRATORY: Breath sounds are diminished but equal bilaterally. No wheezes, rales, or rhonchi. GASTROINTESTINAL: Abdomen soft, non-tender, nondistended. No guarding. MUSCULOSKELETAL: Extremities without clubbing, cyanosis, or edema. No calf tenderness. NEUROLOGICAL: Awake and alert. Motor and sensory grossly within normal limits. Normal speech. . Laboratory Laboratory Tests Test 05/10/17 12:53 05/10/17 18:26 White Blood Count 12.9 Red Blood Count 4.88 Hemoglobin 15.2 Hematocrit 44.1 Mean Corpuscular Volume 90.3 Mean Corpuscular Hemoglobin 31.1 Mean Corpuscular Hemoglobin Concent 34.4 Red Cell Distribution Width 14.5 Platelet Count 175 Mean Platelet Volume 9.2 Neutrophils (%) (Auto) 79.5 Lymphocytes (%) (Auto) 14.6 Monocytes (%) (Auto) 4.7 Eosinophils (%) (Auto) 0.5 Basophils (%) (Auto) 0.7 Neutrophils # (Auto) 10.3 Lymphocytes # (Auto) 1.9 Monocytes # (Auto) 0.6 Eosinophils # (Auto) 0.1 Basophils # (Auto) 0.1 CBC Comment DIFF FINAL Differential Comment Prothrombin Time 10.6 Prothromb Time International Ratio 1.0 Activated Partial Thromboplast Time 28.5 Blood Urea Nitrogen 19 Creatinine 1.02 Random Glucose 130 Total Protein 7.0 Albumin 3.6 Calcium Level 8.8 Magnesium Level 2.0 Alkaline Phosphatase 56 Aspartate Amino Transf (AST/SGOT) 15 Alanine Aminotransferase (ALT/SGPT) 20 Total Bilirubin 0.4 Sodium Level 134 Potassium Level 3.6 Chloride Level 100 Carbon Dioxide Level 24.8 Anion Gap 9 Estimat Glomerular Filtration Rate 73 Total Creatine Kinase 93 Troponin I LESS THAN 0.02 B-Type Natriuretic Peptide 9 Result Diagram: 05/10/17 1253 05/10/17 1253 Imaging . Last Impressions Chest X-Ray 05/10/17 1242 Signed Impressions: Service Date/Time: Wednesday, May 10, 2017 13:15 - CONCLUSION: 1. No acute cardiopulmonary disease. MD Apoorva Lopez VTE Risk Assessment Caprini VTE Risk Assessment: Mod/High Risk (score >= 2) Caprini Risk Assessment Model Point Value = 1 Point Value = 2 Point Value = 3 Point Value = 5 Age 41-60 Minor surgery BMI > 25 kg/m2 Swollen legs Varicose veins or History of unexplained or recurrent spontaneous Oral contraceptives or hormone replacement Sepsis (< 1 month) Serious lung disease, including pneumonia (< 1 month) Abnormal pulmonary function Acute myocardial infarction Congestive heart failure (< 1 month) History of inflammatory bowel disease Medical patient at bed rest Age 61-74 Arthroscopic surgery Major open surgery (> 45 min) Laparoscopic surgery (> 45 min) Malignancy Confined to bed (> 72 hours) Immobilizing plaster cast Central venous access Age >= 75 History of VTE Family history of VTE Factor V Leiden Prothrombin [id number] Lupus anticoagulant Anticardiolipin antibodies Elevated serum homocysteine Heparin-induced thrombocytopenia Other congenital or acquired thrombophilia Stroke (< 1 month) Elective arthroplasty Hip, pelvis, or leg fracture Acute spinal cord injury (< 1 month) Prophylaxis Regimen Total Risk Factor Score Risk Level Prophylaxis Regimen 0-1 Low Early ambulation 2 Moderate Order ONE of the following: *Sequential Compression Device (SCD) *Heparin 5000 units SQ BID 3-4 Higher Order ONE of the following medications: *Heparin 5000 units SQ TID *Enoxaparin/Lovenox 40 mg SQ daily (WT < 150 kg, CrCl > 30 mL/min) *Enoxaparin/Lovenox 30 mg SQ daily (WT < 150 kg, CrCl > 10-29 mL/min) *Enoxaparin/Lovenox 30 mg SQ BID (WT < 150 kg, CrCl > 30 mL/min) AND/OR *Sequential Compression Device (SCD) 5 or more Highest Order ONE of the following medications: *Heparin 5000 units SQ TID (Preferred with Epidurals) *Enoxaparin/Lovenox 40 mg SQ daily (WT < 150 kg, CrCl > 30 mL/min) *Enoxaparin/Lovenox 30 mg SQ daily (WT < 150 kg, CrCl > 10-29 mL/min) *Enoxaparin/Lovenox 30 mg SQ BID (WT < 150 kg, CrCl > 30 mL/min) AND *Sequential Compression Device (SCD) Assessment and Plan Assessment and Plan Mr. Richardson is a pleasant 66-year-old male who is here from [facility] for a wedding and has been experiencing severe and persistent symptoms of heartburn for the past 3 days followed by diaphoresis, weakness, dizziness and experienced a syncopal episode on 05/10/17. According to the ER doctor's dictation, the patient's had to give him rescue breathing following his collapse. When the patient awakened, he had severe intractable chest pain despite nitroglycerin and morphine. He had accompanying nausea without vomiting. The patient was taken to cardiac catheterization by Dr. Smith and was found to have severe coronary artery disease with the first obtuse marginal coronary artery requiring 3 stents. He also has significant RCA disease and that will be addressed with a cardiac catheterization and intervention on Saturday according to Dr. Smith's notes. CAD - s/p OM1 stents x 3 05/10/17 - Further intervention for significant RCA disease planned for Saturday 05/[address] Smith - will check HgA1C and lipid profile - ACEI was held by Dr. Smith pending trend of renal indices following large amount of contrast required for cardiac cath and beta-john was also held due to bradycardia - Aggrastat drip, atorvastatin, Plavix, aspirin, and analgesia ordered by Dr. Smith - The patient is pain-free and asymptomatic at the time of my visit Tobacco abuse - The patient is a heavy smoker and is unable to have a nicotine patch - Cessation is advised -Ativan 0.5 mg p.o. every 6 hours as needed anxiety ordered to help with anxiety from nicotine withdrawal Mild renal insufficiency secondary to mild dehydration - BUN 19, creatinine 1.02, estimated GFR 73 on admission - Patient receiving IV fluid hydration with normal saline at 100 cc/h - Repeat BMP in a.m. and follow trends and renal indices Mild hyponatremia -Initial sodium 134 on admission-replaced with IV fluid hydration -recheck with BMP in a.m. and follow results DVT prophylaxis - per cardiology Discussed Condition With Patient, RN, and Dr. Steen Physician Certification 2 Midnight Certification Type: Admission for Inpatient Services Order for Inpatient Services The services are ordered in accordance with Medicare regulations or non- Medicare payer requirements, as applicable. In the case of services not specified as inpatient-only, they are appropriately provided as inpatient services in accordance with the 2-midnight benchmark. Estimated LOS (days): 6 days is the estimated time the patient will need to remain in the hospital, assuming treatment plan goals are met and no additional complications. Post-Hospital Plan: Home Problem Qualifiers (1) Syncope: Qualified Codes: R55 - Syncope and collapse Harini Green May 10, 2017 22:01
[2017-05-10 23:00] VITALS: BP 127/81; PULSE 79; RESP 14; TEMP 98; O2SAT 99
[2017-05-11] VITALS (21 sets, daily range): BP systolic 121–155; BP diastolic 81–98; PULSE 60–102; RESP 14–18; TEMP 97.8–98.4; O2SAT 95–100
--- NOTE | 2017-05-11 00:01 | MB ---
cc: Buck Smith Vincent G DO DATE: 05/10/2017 REASON FOR CONSULTATION: Syncope, unstable angina. HISTORY OF PRESENT ILLNESS: Aravind Richardson is a pleasant 66-year-old male who is visiting from [place], [place] for a wedding and has noticed heartburn on and off for the past 3 days. This morning, he noticed the heartburn for quite some time and so he attempted to take baking soda with warm water to try to get some relief, but had no relief. He was standing by the bed when his went into the restroom and then she came back out and he was passed out on the bed. She states that he was cold and not breathing and so she started giving him respiratory breaths and he finally came to. At that time, he had been incontinent of urine. EMS was called and a STEMI alert was called based on his EKG. Upon arrival, EKG showed ST depressions in multiple leads and he continued to have chest pain. I was called emergently to evaluate the patient. In seeing the patient, he continued to have chest pain after being given nitro and morphine. The patient was previously worked up by Cardiology a couple years ago, when he was found to have calcification on his heart vessels on one of his exams. Apparently, he underwent some type of workup, but never followed up with a biomedical equipment tech. PAST MEDICAL HISTORY: 1. Diverticulosis. 2. Colitis. 3. Polyps. 4. Precancerous skin lesions. 5. Prostate enlargement. 6. Left kidney cyst. 7. Chronic back pain. 8. Tobacco abuse. PAST SURGICAL HISTORY: 1. Tonsillectomy. 2. Colonoscopy. ALLERGIES: PENICILLIN. MEDICATIONS: Denies. FAMILY HISTORY: Denies premature coronary artery disease or sudden cardiac within the family. SOCIAL HISTORY: The patient smokes 2 packs per day since the age of 16. He occasionally drinks alcohol. He denies drug abuse. REVIEW OF SYSTEMS: Fourteen systems were reviewed, including osteopathic. Pertinent positives and negatives as above, otherwise negative. PHYSICAL EXAMINATION: VITAL SIGNS: Temperature 97.9, heart rate 68, blood pressure 130/81, respirations 18, pulse oximetry 100% on 2 L. GENERAL: The patient appears older than stated age. HEENT: Extraocular muscles intact. Mucous membranes moist. NECK: Supple. No JVD at 45 degrees. No carotid bruits heard bilaterally. Carotid upstroke is brisk in nature. HEART: Regular rate and rhythm. Positive first and second heart sounds, without any murmurs, gallops or rubs. LUNGS: Clear to auscultation bilaterally. No wheezes, rales or rhonchi. ABDOMEN: Soft, nontender, nondistended. No organomegaly noted. EXTREMITIES: Show no clubbing, cyanosis or edema. Femoral and distal pulses are intact bilaterally. NEUROLOGIC: No focal deficits. SKIN: Warm, dry and intact. OSTEOPATHIC: No kyphoscoliosis, lordosis or paraspinal tender points. LABORATORY DATA: Hemoglobin 15.2, hematocrit 44.1, platelets 175. Potassium 3.6, BUN 19, creatinine 1.02. CARDIOLOGY STUDIES: Electrocardiogram (05/10/2017, at 12:37) sinus rhythm, moderate ST depressions inferolaterally, possibly due to ischemia. IMPRESSIONS: 1. Unstable angina. 2. Syncopal episode. 3. Possible aborted sudden cardiac . 4. Tobacco abuse. RECOMMENDATIONS: 1. Mr. Richardson appears to have had unstable angina over the past 3 days. 2. He continues to have chest pain and because of this, I believe that we should take him urgently to the finishing lab technician to rule out significant disease. 3. I am concerned with his syncopal episode, as his states he was cold and not breathing, and I believe that this may have been an aborted sudden cardiac . He may have had an arrhythmia due to ischemia from heart disease. 4. I spoke to him for greater than 3 minutes about tobacco cessation. 5. Risks, benefits, and alternatives of cardiac catheterization have been discussed with him and he consents as such. 6. We will check a 2-D echo to look at his overall left ventricular function, cardiac structure and possible valvulopathies. 7. Further recommendations will be made based on coronary visualization. Thank you for allowing me to see Aravind Richardson. If there are any questions, please do not hesitate to call. Buck Smith, DO GODINEZ/SA/ , 11:02 PM , 11:23 PM
[2017-05-11 07:57] LABS: AUTOMATED NEUTROPHIL # 7.8 TH/MM3 (1.8-7.7); BASOPHIL % 0.4 % (0.0-2.0); EOSINOPHIL % 0.5 % (0.0-4.0); HEMATOCRIT 43.1 % (39.0-51.0); HEMOGLOBIN 15.1 GM/DL (13.0-17.0); LYMPH % 14.7 % (9.0-44.0); LYMPHOCYTE # 1.5 TH/MM3 (1.0-4.8); MEAN CELL VOLUME 90.8 FL (80.0-100.0); MEAN CORPUSCULAR HEMOGLOBIN 31.8 PG (27.0-34.0); MEAN CORPUSCULAR HGB CONC 35.1 % (32.0-36.0); MEAN PLATELET VOLUME 8.7 FL (7.0-11.0); MONO % 7.2 % (0.0-8.0); MONOCYTE # 0.7 TH/MM3 (0-0.9); NEUT % 77.2 % (16.0-70.0); PLATELET COUNT 153 TH/MM3 (150-450); RED BLOOD COUNT 4.75 MIL/MM3 (4.50-5.90); RED CELL DISTRIBUTION WIDTH 14.5 % (11.6-17.2); WHITE BLOOD COUNT 10.1 TH/MM3 (4.0-11.0)
[2017-05-11 08:23] LABS: BICARBONATE 26.5 MEQ/L (21.0-32.0); BLOOD UREA NITROGEN 12 MG/DL (7-18); CALCIUM 8.8 MG/DL (8.5-10.1); CHLORIDE 104 MEQ/L (98-107); CREATININE 0.97 MG/DL (0.60-1.30); GLOMERULAR FILTRATION RATE 77 ML/MIN (>89); GLUCOSE,RANDOM 94 MG/DL (74-106); SODIUM (NA) 137 MEQ/L (136-145)
[2017-05-11 08:24] LABS: CHOLESTEROL 204 MG/DL (120-200); TRIGLYCERIDES 68 MG/DL (42-150)
[2017-05-11 08:27] LABS: CHOLESTEROL/ HDL RATIO 3.87 RATIO; HDL CHOLESTEROL 52.6 MG/DL (40.0-60.0); LDL CHOLESTEROL 138 MG/DL (0-99)
[2017-05-11] MEDS ORDERED: CLOPIDOGREL 75 MG TAB PO SCH (09:00)
[2017-05-11] MEDS: ASPIRIN 81 MG CHEW TAB PO SCH (10:08)
[2017-05-11] MEDS: LORazepam 0.5 MG TAB PO PRN ×3 (10:11→22:44)
--- NOTE | 2017-05-11 11:37 | PD.CARD.PN ---
Subjective Subjective Remarks No events overnight No chest pain/SOB Objective Medications Current Medications Medications (Trade) Dose Ordered Sig/Wolf Route Start Time Stop Time Status Last Admin (NS Flush) 2 ml UNSCH PRN IVF 05/10/17 12:45 (Tylenol) 325 mg Q4H PRN PO 05/10/17 16:45 (Percocet 5-325 Mg) 1 tab Q4H PRN PO 05/10/17 16:45 (Percocet 10-325 Mg) 1 tab Q4H PRN PO 05/10/17 16:45 (Morphine Inj) 2 mg Q30M PRN IV PUSH 05/10/17 16:45 (Restoril) 15 mg HS PRN PO 05/10/17 16:45 (Zofran Inj) 4 mg Q6H PRN IVP 05/10/17 16:45 (Aspirin Chew) 81 mg DAILY PO 05/11/17 09:00 05/11/17 10:08 (Plavix) 75 mg DAILY PO 05/11/17 09:00 05/11/17 10:07 (Lipitor) 80 mg HS PO 05/10/17 21:00 Tirofiban/Sodium Chloride 250 ml @ 13.5 mls/hr [id number] IV 05/10/17 16:31 05/10/17 16:37 (Ativan) 0.5 mg Q6H PRN PO 05/10/17 21:15 05/11/17 10:11 Vital Signs / I&O Vital Signs Date Time Temp Pulse Resp B/P (MAP) Pulse Ox O2 Delivery O2 Flow Rate FiO2 05/11/17 07:46 97.9 69 17 131/85 (100) 98 05/11/17 07:23 66 05/11/17 03:00 98.2 72 16 121/81 (94) 95 05/10/17 23:00 98.0 79 14 127/81 (96) 99 05/10/17 20:00 97.9 66 14 138/91 (107) 98 05/10/17 18:34 98.0 64 18 153/82 (105) 99 05/10/17 14:03 05/10/17 12:47 66 18 100 Nasal Cannula 2.00 05/10/17 12:47 68 18 100 Room Air 05/10/17 12:47 97.9 68 18 130/81 (97) 100 Nasal Cannula 2.00 05/10/17 12:41 97.9 71 18 130/81 (97) 100 I/O 05/10/17 05/10/17 05/10/17 05/11/17 05/11/17 05/11/17 07:00 15:00 23:00 07:00 15:00 23:00 Intake Total 537.5 ml 960 ml Output Total 1850 ml Balance 537.5 ml -890 ml Intake Oral 960 ml IV Total 537.5 ml Output Urine Total 1850 ml Physical Exam GENERAL: NAD, AAOx3 SKIN: Warm and dry. HEAD: Atraumatic. Normocephalic. EYES: Pupils equal and round. No scleral icterus. No injection or drainage. ENT: No nasal bleeding or discharge. Mucous membranes pink and moist. NECK: Trachea midline. No JVD. CARDIOVASCULAR: Regular rate and rhythm. RESPIRATORY: No accessory muscle use. Clear to auscultation. Breath sounds equal bilaterally. GASTROINTESTINAL: Abdomen soft, non-tender, nondistended. Hepatic and splenic margins not palpable. MUSCULOSKELETAL: Extremities without clubbing, cyanosis, or edema. No obvious deformities. Right radial no hematoma, neurovascularly intact distally NEUROLOGICAL: Awake and alert. No obvious cranial nerve deficits. Motor grossly within normal limits. Five out of 5 muscle strength in the arms and legs. Normal speech. PSYCHIATRIC: Appropriate mood and affect; insight and judgment normal. Laboratory Laboratory Tests Test 05/10/17 12:53 05/10/17 18:26 05/11/17 07:29 White Blood Count 12.9 TH/MM3 11.1 TH/MM3 10.1 TH/MM3 Red Blood Count 4.88 MIL/MM3 4.56 MIL/MM3 4.75 MIL/MM3 Hemoglobin 15.2 GM/DL 14.1 GM/DL 15.1 GM/DL Hematocrit 44.1 % 41.5 % 43.1 % Mean Corpuscular Volume 90.3 FL 91.0 FL 90.8 FL Mean Corpuscular Hemoglobin 31.1 PG 30.9 PG 31.8 PG Mean Corpuscular Hemoglobin Concent 34.4 % 34.0 % 35.1 % Red Cell Distribution Width 14.5 % 14.3 % 14.5 % Platelet Count 175 TH/MM3 153 TH/MM3 153 TH/MM3 Mean Platelet Volume 9.2 FL 8.8 FL 8.7 FL Neutrophils (%) (Auto) 79.5 % 79.4 % 77.2 % Lymphocytes (%) (Auto) 14.6 % 13.4 % 14.7 % Monocytes (%) (Auto) 4.7 % 6.8 % 7.2 % Eosinophils (%) (Auto) 0.5 % 0.1 % 0.5 % Basophils (%) (Auto) 0.7 % 0.3 % 0.4 % Neutrophils # (Auto) 10.3 TH/MM3 8.9 TH/MM3 7.8 TH/MM3 Lymphocytes # (Auto) 1.9 TH/MM3 1.5 TH/MM3 1.5 TH/MM3 Monocytes # (Auto) 0.6 TH/MM3 0.8 TH/MM3 0.7 TH/MM3 Eosinophils # (Auto) 0.1 TH/MM3 0.0 TH/MM3 0.0 TH/MM3 Basophils # (Auto) 0.1 TH/MM3 0.0 TH/MM3 0.0 TH/MM3 CBC Comment DIFF FINAL DIFF FINAL DIFF FINAL Differential Comment Prothrombin Time 10.6 SEC Prothromb Time International Ratio 1.0 RATIO Activated Partial Thromboplast Time 28.5 SEC Blood Urea Nitrogen 19 MG/DL 12 MG/DL Creatinine 1.02 MG/DL 0.97 MG/DL Random Glucose 130 MG/DL 94 MG/DL Total Protein 7.0 GM/DL Albumin 3.6 GM/DL Calcium Level 8.8 MG/DL 8.8 MG/DL Magnesium Level 2.0 MG/DL Alkaline Phosphatase 56 U/L Aspartate Amino Transf (AST/SGOT) 15 U/L Alanine Aminotransferase (ALT/SGPT) 20 U/L Total Bilirubin 0.4 MG/DL Sodium Level 134 MEQ/L 137 MEQ/L Potassium Level 3.6 MEQ/L 3.9 MEQ/L Chloride Level 100 MEQ/L 104 MEQ/L Carbon Dioxide Level 24.8 MEQ/L 26.5 MEQ/L Anion Gap 9 MEQ/L 7 MEQ/L Estimat Glomerular Filtration Rate 73 ML/MIN 77 ML/MIN Total Creatine Kinase 93 U/L Troponin I LESS THAN 0.02 NG/ML B-Type Natriuretic Peptide 9 PG/ML Triglycerides Level 68 MG/DL Cholesterol Level 204 MG/DL LDL Cholesterol 138 MG/DL HDL Cholesterol 52.6 MG/DL Cholesterol/HDL Ratio 3.87 RATIO Imaging Last 24 hours Impressions Chest X-Ray 05/10/17 1242 Signed Impressions: Service Date/Time: Wednesday, May 10, 2017 13:15 - CONCLUSION: 1. No acute cardiopulmonary disease. Gera Haas MD Assessment and Plan Problem List: (1) Sudden cardiac arrest ICD Codes: I46.9 - Cardiac arrest, cause unspecified (2) Unstable angina ICD Codes: I20.0 - Unstable angina Status: Acute (3) Syncope ICD Codes: R55 - Syncope and collapse Status: Acute (4) Coronary artery disease ICD Codes: I25.10 - Atherosclerotic heart disease of [place] coronary artery without angina pectoris (5) Tobacco abuse ICD Codes: Z72.0 - Tobacco use Assessment and Plan 1) [place]/CAD s/p DESx3 to OM1, complex case Residual RCA disease Plan to intervene on Saturday Aggrastat over night, now on ASA/Plavix but plan to change to ASA/Brilinta No Beta Santosh due to heart rates in the 50s in the [employer] No statin due to allergy, has tried multiple statins in the past, unable to tolerate 2) Statin allergy Consider starting PCSK-9 Inhibitor outpt 3) Possible aborted sudden cardiac said he was cold and not breathing during syncopal episode Possible arrhythmia due to ischemia 4) 2D echo pending 5) Tobacco cessation Problem Qualifiers (1) Syncope: Qualified Codes: R55 - Syncope and collapse Buck Smith DO May 11, 2017 11:37
--- NOTE | 2017-05-11 12:17 | HHI.PR ---
Subjective Remarks Patient reports he is feeling great. No chest pain or shortness of breath. Objective Vitals Vital Signs Date Time Temp Pulse Resp B/P (MAP) Pulse Ox O2 Delivery O2 Flow Rate FiO2 05/11/17 11:49 97.8 60 18 146/96 (113) 100 05/11/17 07:46 97.9 69 17 131/85 (100) 98 05/11/17 07:23 66 05/11/17 03:00 98.2 72 16 121/81 (94) 95 05/10/17 23:00 98.0 79 14 127/81 (96) 99 05/10/17 20:00 97.9 66 14 138/91 (107) 98 05/10/17 18:34 98.0 64 18 153/82 (105) 99 05/10/17 14:03 05/10/17 12:47 66 18 100 Nasal Cannula 2.00 05/10/17 12:47 68 18 100 Room Air 05/10/17 12:47 97.9 68 18 130/81 (97) 100 Nasal Cannula 2.00 05/10/17 12:41 97.9 71 18 130/81 (97) 100 I/O 05/10/17 05/10/17 05/10/17 05/11/17 05/11/17 05/11/17 07:00 15:00 23:00 07:00 15:00 23:00 Intake Total 537.5 ml 960 ml Output Total 1850 ml Balance 537.5 ml -890 ml Intake Oral 960 ml IV Total 537.5 ml Output Urine Total 1850 ml Result Diagram: 05/11/1729 05/11/17 0729 Objective Remarks GENERAL: This is a well-nourished, well-developed patient, in no apparent distress. CARDIOVASCULAR: Normal rate and regular rhythm without murmurs, gallops, or rubs. RESPIRATORY: Good respiratory efforts. Breath sounds equal and clear to auscultation bilaterally. GASTROINTESTINAL: Abdomen soft, non-tender, non-distended. Normal active bowel sounds MUSCULOSKELETAL: Extremities without cyanosis, or edema. NEURO: Alert & Oriented x4 to person, place, time, situation. Moves all ext x4 PSYCH: Appropriate mood and affect. A/P Problem List: (1) Syncope ICD Code: R55 - Syncope and collapse Status: Acute (2) Unstable angina ICD Code: I20.0 - Unstable angina Status: Acute (3) Coronary artery disease ICD Code: I25.10 - Atherosclerotic heart disease of [place] coronary artery without angina pectoris (4) Tobacco abuse ICD Code: Z72.0 - Tobacco use (5) Sudden cardiac arrest ICD Code: I46.9 - Cardiac arrest, cause unspecified Assessment and Plan 66-year-old male who had what sounds like a sudden cardiac arrest at home and probably revived by his . Patient found to have significant coronary artery disease. Cardiology following. Unstable angina/CAD - s/p OM1 stents x 3 05/10/17 - Further intervention for significant RCA disease planned for Saturday 05/[address] Smith - ACEI was held by Dr. Smith pending trend of renal indices following large amount of contrast required for cardiac cath and beta-john was also held due to bradycardia - Aggrastat drip, atorvastatin, Plavix, aspirin, and analgesia per Dr. Smith -Patient has statin allergy Tobacco abuse - The patient is a heavy smoker and is unable to have a nicotine patch - Cessation is advised -Ativan 0.5 mg p.o. every 6 hours as needed anxiety ordered to help with anxiety from nicotine withdrawal Mild renal insufficiency secondary to mild dehydration -Resolved. DVT prophylaxis -Encourage ambulation. Has been on drips as noted above. Problem Qualifiers (1) Syncope: Qualified Codes: R55 - Syncope and collapse Gil Pulido MD May 11, 2017 12:17
--- NOTE | 2017-05-11 19:20 | EKG ---
Date Performed: 05/10/2017 Time Performed: 12:37:22 PTAGE: 66 years EKG: Sinus rhythm MODERATE ST DEPRESSION ABNORMAL ECG NO PREVIOUS TRACING DOCTOR: Saba Stokes Interpretating Date/Time 05/11/2017 19:18:08
[2017-05-11] MEDS: TEMAZEPAM 15 MG CAP PO PRN (22:44)
[2017-05-12] VITALS (27 sets, daily range): BP systolic 128–144; BP diastolic 83–93; PULSE 72–92; RESP 14–19; TEMP 98–98.4; O2SAT 96–99
[2017-05-12 05:20] LABS: AUTOMATED NEUTROPHIL # 6.7 TH/MM3 (1.8-7.7); BASOPHIL % 0.4 % (0.0-2.0); EOSINOPHIL # 0.1 TH/MM3 (0-0.4); EOSINOPHIL % 0.8 % (0.0-4.0); HEMATOCRIT 42.3 % (39.0-51.0); HEMOGLOBIN 14.5 GM/DL (13.0-17.0); LYMPH % 18.6 % (9.0-44.0); LYMPHOCYTE # 1.7 TH/MM3 (1.0-4.8); MEAN CELL VOLUME 90.9 FL (80.0-100.0); MEAN CORPUSCULAR HEMOGLOBIN 31.2 PG (27.0-34.0); MEAN CORPUSCULAR HGB CONC 34.3 % (32.0-36.0); MEAN PLATELET VOLUME 8.8 FL (7.0-11.0); MONO % 8.4 % (0.0-8.0); MONOCYTE # 0.8 TH/MM3 (0-0.9); NEUT % 71.8 % (16.0-70.0); PLATELET COUNT 139 TH/MM3 (150-450); RED BLOOD COUNT 4.65 MIL/MM3 (4.50-5.90); RED CELL DISTRIBUTION WIDTH 14.4 % (11.6-17.2); WHITE BLOOD COUNT 9.4 TH/MM3 (4.0-11.0)
[2017-05-12 05:36] LABS: BICARBONATE 26.7 MEQ/L (21.0-32.0); CALCIUM 8.3 MG/DL (8.5-10.1); CREATININE 0.88 MG/DL (0.60-1.30)
[2017-05-12] MEDS: ASPIRIN 81 MG CHEW TAB PO SCH (08:26)
[2017-05-12] MEDS: LISINOPRIL 5 MG TAB PO SCH (08:26)
[2017-05-12] MEDS ORDERED: TICAGRELOR 90 MG TAB PO ONE (09:00)
[2017-05-12] MEDS: LORazepam 0.5 MG TAB PO PRN ×3 (09:45→23:18)
[2017-05-12] MEDS ORDERED: NITROGLYCERIN 0.4 MG SL 25 TABS/BTL SL ONE (10:18)
[2017-05-12] MEDS ORDERED: NITROGLYCERIN 0.4 MG SL 25 TABS/BTL SL PRN (11:30)
--- NOTE | 2017-05-12 11:32 | PD.CARD.PN ---
Subjective Subjective Remarks No events overnight [place] a little SOB this morning EKG with no changes Given 1 nitro and felt better Objective Medications Current Medications Medications (Trade) Dose Ordered Sig/Wolf Route Start Time Stop Time Status Last Admin (NS Flush) 2 ml UNSCH PRN IVF 05/10/17 12:45 (Tylenol) 325 mg Q4H PRN PO 05/10/17 16:45 (Percocet 5-325 Mg) 1 tab Q4H PRN PO 05/10/17 16:45 (Percocet 10-325 Mg) 1 tab Q4H PRN PO 05/10/17 16:45 (Morphine Inj) 2 mg Q30M PRN IV PUSH 05/10/17 16:45 (Restoril) 15 mg HS PRN PO 05/10/17 16:45 05/11/17 22:44 (Zofran Inj) 4 mg Q6H PRN IVP 05/10/17 16:45 (Aspirin Chew) 81 mg DAILY PO 05/11/17 09:00 05/12/17 08:26 (Ativan) 0.5 mg Q6H PRN PO 05/10/17 21:15 05/12/17 09:45 (Prinivil) 5 mg DAILY PO 05/12/17 09:00 05/12/17 08:26 (Brilinta) 90 mg BID PO 05/12/17 21:00 (Nitrostat Sl) 0.4 mg Q5M PRN SL 05/12/17 11:30 Vital Signs / I&O Vital Signs Date Time Temp Pulse Resp B/P (MAP) Pulse Ox O2 Delivery O2 Flow Rate FiO2 05/12/17 11:06 98.4 74 19 137/86 (103) 99 05/12/17 09:39 87 05/12/17 08:44 81 05/12/17 08:16 98.2 77 18 137/88 (104) 98 05/12/17 07:00 76 05/12/17 06:00 76 05/12/17 05:00 79 05/12/17 04:00 72 05/12/17 03:00 77 05/12/17 03:00 98.2 72 14 128/83 (98) 96 05/12/17 02:00 73 05/12/17 01:00 74 05/12/17 00:00 78 05/11/17 23:00 98.0 69 14 152/98 (116) 98 05/11/17 23:00 79 05/11/17 22:00 69 05/11/17 21:00 74 05/11/17 20:00 73 05/11/17 20:00 98.4 79 16 153/96 (115) 98 05/11/17 19:00 79 05/11/17 18:00 68 05/11/17 17:00 66 05/11/17 16:22 98.2 69 17 155/97 (116) 99 05/11/17 16:00 68 05/11/17 15:00 74 05/11/17 14:00 78 05/11/17 13:00 70 05/11/17 12:00 68 05/11/17 11:49 97.8 60 18 146/96 (113) 100 I/O 05/11/17 05/11/17 05/11/17 05/12/17 05/12/17 05/12/17 07:00 15:00 23:00 07:00 15:00 23:00 Intake Total 960 ml 960 ml 930 ml Output Total 1850 ml 1350 ml 1150 ml Balance -890 ml -390 ml -220 ml Intake Oral 960 ml 960 ml 930 ml Output Urine Total 1850 ml 1350 ml 1150 ml Physical Exam GENERAL: NAD, AAOx3 SKIN: Warm and dry. HEAD: Atraumatic. Normocephalic. EYES: Pupils equal and round. No scleral icterus. No injection or drainage. ENT: No nasal bleeding or discharge. Mucous membranes pink and moist. NECK: Trachea midline. No JVD. CARDIOVASCULAR: Regular rate and rhythm. RESPIRATORY: No accessory muscle use. Clear to auscultation. Breath sounds equal bilaterally. GASTROINTESTINAL: Abdomen soft, non-tender, nondistended. Hepatic and splenic margins not palpable. MUSCULOSKELETAL: Extremities without clubbing, cyanosis, or edema. No obvious deformities. Right radial no hematoma, neurovascularly intact distally NEUROLOGICAL: Awake and alert. No obvious cranial nerve deficits. Motor grossly within normal limits. Five out of 5 muscle strength in the arms and legs. Normal speech. PSYCHIATRIC: Appropriate mood and affect; insight and judgment normal. Laboratory Laboratory Tests Test 05/12/17 04:47 White Blood Count 9.4 TH/MM3 Red Blood Count 4.65 MIL/MM3 Hemoglobin 14.5 GM/DL Hematocrit 42.3 % Mean Corpuscular Volume 90.9 FL Mean Corpuscular Hemoglobin 31.2 PG Mean Corpuscular Hemoglobin Concent 34.3 % Red Cell Distribution Width 14.4 % Platelet Count 139 TH/MM3 Mean Platelet Volume 8.8 FL Neutrophils (%) (Auto) 71.8 % Lymphocytes (%) (Auto) 18.6 % Monocytes (%) (Auto) 8.4 % Eosinophils (%) (Auto) 0.8 % Basophils (%) (Auto) 0.4 % Neutrophils # (Auto) 6.7 TH/MM3 Lymphocytes # (Auto) 1.7 TH/MM3 Monocytes # (Auto) 0.8 TH/MM3 Eosinophils # (Auto) 0.1 TH/MM3 Basophils # (Auto) 0.0 TH/MM3 CBC Comment DIFF FINAL Differential Comment Blood Urea Nitrogen 10 MG/DL Creatinine 0.88 MG/DL Random Glucose 95 MG/DL Calcium Level 8.3 MG/DL Sodium Level 136 MEQ/L Potassium Level 3.7 MEQ/L Chloride Level 103 MEQ/L Carbon Dioxide Level 26.7 MEQ/L Anion Gap 6 MEQ/L Estimat Glomerular Filtration Rate 87 ML/MIN Assessment and Plan Problem List: (1) Sudden cardiac arrest ICD Codes: I46.9 - Cardiac arrest, cause unspecified (2) Unstable angina ICD Codes: I20.0 - Unstable angina Status: Acute (3) Syncope ICD Codes: R55 - Syncope and collapse Status: Acute (4) Coronary artery disease ICD Codes: I25.10 - Atherosclerotic heart disease of [place] coronary artery without angina pectoris (5) Tobacco abuse ICD Codes: Z72.0 - Tobacco use Assessment and Plan 1) [place]/CAD s/p DESx3 to OM1, complex case Residual RCA disease Plan to intervene tomorrow ASA/Brilinta No Beta Santosh due to heart rates in the 50s in the laboratory as[facility] No statin due to allergy, has tried multiple statins in the past, unable to tolerate 2) Statin allergy Consider starting PCSK-9 Inhibitor outpt 3) Possible aborted sudden cardiac said he was cold and not breathing during syncopal episode Possible arrhythmia due to ischemia 4) 2D echo pending 5) Tobacco cessation 6) SOB possible due to RCA disease vs starting Brilinta Currently stable, if CP unrelenting, or hemodynamically/electrically unstable then will plan for urgent cardiac catheterization Problem Qualifiers (1) Syncope: Qualified Codes: R55 - Syncope and collapse Buck Smith DO May 12, 2017 11:32
[2017-05-12 13:09] LABS: HEMOGLOBIN A1C 5.8 % (4.3-6.0)
--- NOTE | 2017-05-12 13:53 | ECHRPT ---
Indication: CAD CONCLUSIONS Normal left ventricular size. Moderate concentric left ventricular hypertrophy. The left ventricular systolic function is normal with an estimated ejection fraction in the range of 55-60%. Trace mitral valve regurgitation. There is trace tricuspid valve regurgitation. The estimated pulmonary arterial pressure is 30 mmHg. BP: 131 / 85 HR: 100 Rhythm: MEASUREMENTS (Male / Female) Normal Values Technical Quality: 2D ECHO LV Diastolic Diameter PLAX 4.1 cm 4.2 - 5.9 / 3.9 - 5.3 cm LV Systolic Diameter PLAX 3.2 cm IVS Diastolic Thickness 1.3 cm 0.6 - 1.0 / 0.6 - 0.9 cm LVPW Diastolic Thickness 0.8 cm 0.6 - 1.0 / 0.6 - 0.9 cm LV Relative Wall Thickness 0.5 RV Internal Dim ED PLAX 2.4 cm LA Systolic Diameter LX 3.3 cm 3.0 - 4.0 / 2.7 - 3.8 cm DOPPLER Mitral E Point Velocity 60.7 cm/s Mitral A Point Velocity 80.5 cm/s Mitral E to A Ratio 0.8 TR Peak Velocity 226.0 cm/s TR Peak Gradient 20.4 mmHg Right Atrial Pressure 10.0 mmHg Pulmonary Artery Systolic Pressu 30.4 mmHg Right Ventricular Systolic Press 30.4 mmHg FINDINGS LEFT VENTRICLE Normal left ventricular size. Moderate concentric left ventricular hypertrophy. The left ventricular systolic function is normal with an estimated ejection fraction in the range of 55-60%. Doppler parameters are consistent with impaired left ventricular relaxtion (grade 1 diastolic dysfun ction). RIGHT VENTRICLE Normal right ventricular size and systolic function. LEFT ATRIUM The left atrial size is normal. RIGHT ATRIUM The right atrial size is normal. ATRIAL SEPTUM Normal atrial septal thickness without atrial level shunting by limited color doppler interrogation. AORTA The aortic root and proximal ascending aorta are normal in size on limited imaging. MITRAL VALVE Trace mitral valve regurgitation. AORTIC VALVE Trileaflet aortic valve. No aortic valve stenosis or regurgitation. TRICUSPID VALVE There is trace tricuspid valve regurgitation. The estimated pulmonary arterial pressure is 30 mmHg. PULMONARY VALVE No pulmonary valve regurgitation or stenosis. VESSELS The inferior vena cava is normal in size. PERICARDIUM No pericardial effusion. Maynor Echeverria MD (Electronically Signed) Final Date:12 May 2017 13:52
--- NOTE | 2017-05-12 14:44 | HHI.PR ---
Subjective Remarks Patient reports he had a brief episode of shortness of breath earlier this morning but that since resolved. No chest pain. Objective Vitals Vital Signs Date Time Temp Pulse Resp B/P (MAP) Pulse Ox O2 Delivery O2 Flow Rate FiO2 05/12/17 11:06 98.4 74 19 137/86 (103) 99 05/12/17 09:39 87 05/12/17 08:44 81 05/12/17 08:16 98.2 77 18 137/88 (104) 98 05/12/17 07:00 76 05/12/17 06:00 76 05/12/17 05:00 79 05/12/17 04:00 72 05/12/17 03:00 77 05/12/17 03:00 98.2 72 14 128/83 (98) 96 05/12/17 02:00 73 05/12/17 01:00 74 05/12/17 00:00 78 05/11/17 23:00 98.0 69 14 152/98 (116) 98 05/11/17 23:00 79 05/11/17 22:00 69 05/11/17 21:00 74 05/11/17 20:00 73 05/11/17 20:00 98.4 79 16 153/96 (115) 98 05/11/17 19:00 79 05/11/17 18:00 68 05/11/17 17:00 66 05/11/17 16:22 98.2 69 17 155/97 (116) 99 05/11/17 16:00 68 05/11/17 15:00 74 I/O 05/11/17 05/11/17 05/11/17 05/12/17 05/12/17 05/12/17 07:00 15:00 23:00 07:00 15:00 23:00 Intake Total 960 ml 960 ml 930 ml Output Total 1850 ml 1350 ml 1150 ml Balance -890 ml -390 ml -220 ml Intake Oral 960 ml 960 ml 930 ml Output Urine Total 1850 ml 1350 ml 1150 ml Result Diagram: 05/12/1744605/12/17446 Objective Remarks GENERAL: This is a well-nourished, well-developed patient, in no apparent distress. CARDIOVASCULAR: Normal rate and regular rhythm without murmurs, gallops, or rubs. RESPIRATORY: Good respiratory efforts. Breath sounds equal and clear to auscultation bilaterally. GASTROINTESTINAL: Abdomen soft, non-tender, non-distended. Normal active bowel sounds MUSCULOSKELETAL: Extremities without cyanosis, or edema. NEURO: Alert & Oriented x4 to person, place, time, situation. Moves all ext x4 PSYCH: Appropriate mood and affect. A/P Problem List: (1) Syncope ICD Code: R55 - Syncope and collapse Status: Acute (2) Unstable angina ICD Code: I20.0 - Unstable angina Status: Acute (3) Coronary artery disease ICD Code: I25.10 - Atherosclerotic heart disease of [place] coronary artery without angina pectoris (4) Tobacco abuse ICD Code: Z72.0 - Tobacco use (5) Sudden cardiac arrest ICD Code: I46.9 - Cardiac arrest, cause unspecified Assessment and Plan 66-year-old male who had what sounds like a sudden cardiac arrest at home and probably revived by his . Patient found to have significant coronary artery disease. Cardiology following. Unstable angina/CAD - s/p OM1 stents x 3 05/10/17 - Further intervention for significant RCA disease planned for 05/[address] Smith - ACEI was held by Dr. Smith pending trend of renal indices following large amount of contrast required for cardiac cath and beta-john was also held due to bradycardia - Aggrastat drip, atorvastatin, Plavix, aspirin, and analgesia per Dr. Smith -Patient has statin allergy Tobacco abuse - The patient is a heavy smoker and is unable to have a nicotine patch - Cessation is advised -Ativan 0.5 mg p.o. every 6 hours as needed anxiety ordered to help with anxiety from nicotine withdrawal Mild renal insufficiency secondary to mild dehydration -Resolved. DVT prophylaxis -Encourage ambulation. For repeat cath tomorrow morning. Discharge Planning Heart catheterization tomorrow morning. Problem Qualifiers (1) Syncope: Qualified Codes: R55 - Syncope and collapse Gil Pulido MD May 12, 2017 14:44
[2017-05-12] MEDS: TICAGRELOR 90 MG TAB PO SCH (20:57)
[2017-05-12] MEDS: TEMAZEPAM 15 MG CAP PO PRN (23:18)
[2017-05-13] VITALS (28 sets, daily range): BP systolic 109–139; BP diastolic 70–88; PULSE 69–99; RESP 14–18; TEMP 97.7–98.9; O2SAT 96–99
[2017-05-13] MEDS: LISINOPRIL 5 MG TAB PO SCH (08:01)
[2017-05-13] MEDS: ASPIRIN 81 MG CHEW TAB PO SCH (08:02)
[2017-05-13] MEDS: TICAGRELOR 90 MG TAB PO SCH ×2 (08:02→21:49)
[2017-05-13] MEDS: LORazepam 0.5 MG TAB PO PRN ×2 (10:19→21:49)
[2017-05-13] MEDS ORDERED: HEPARIN-NS/PF FLUSH BAG 2,000 ML IV FLUSH ONE (12:18)
[2017-05-13] MEDS ORDERED: MIDAZOLAM HCL 2 MG/2 ML VIAL ONE (12:18)
[2017-05-13] MEDS ORDERED: VERAPAMIL HCL 5 MG/2 ML VIAL ONE (12:18)
[2017-05-13] MEDS ORDERED: NITROGLYCERIN INJ 5 ML ONE (12:19)
[2017-05-13] MEDS ORDERED: HEPARIN SODIUM - IV 10,000 UNITS/10 ML VIAL ONE (12:19)
--- NOTE | 2017-05-13 12:19 | HHI.PR ---
Subjective Remarks Patient reports he is feeling okay today. No chest pain or shortness of breath. Objective Vitals Vital Signs Date Time Temp Pulse Resp B/P (MAP) Pulse Ox O2 Delivery O2 Flow Rate FiO2 05/13/17 08:01 98.5 75 18 126/81 (96) 96 05/13/17 06:00 72 05/13/17 05:00 78 05/13/17 04:00 73 05/13/17 03:37 98.0 78 14 139/81 (100) 97 05/13/17 03:00 72 05/13/17 02:00 99 05/13/17 01:00 83 05/13/17 00:00 93 05/12/17 23:00 98.2 75 14 144/86 (105) 99 05/12/17 23:00 75 05/12/17 22:00 91 05/12/17 21:00 92 05/12/17 20:00 75 05/12/17 20:00 98.0 77 16 131/93 (106) 99 05/12/17 19:00 77 05/12/17 18:23 73 05/12/17 17:11 78 05/12/17 16:00 76 05/12/17 15:39 98.2 89 18 141/87 (105) 97 05/12/17 15:00 78 05/12/17 14:00 76 05/12/17 13:00 78 I/O 05/12/17 05/12/17 05/12/17 05/13/17 05/13/17 05/13/17 07:00 15:00 23:00 07:00 15:00 23:00 Intake Total 930 ml 960 ml 360 ml Output Total 1150 ml 750 ml 1125 ml Balance -220 ml 210 ml -765 ml Intake Oral 930 ml 960 ml 360 ml Output Urine Total 1150 ml 750 ml 1125 ml Result Diagram: 05/12/17 0447 05/12/17 0447 Objective Remarks GENERAL: This is a well-nourished, well-developed patient, in no apparent distress. CARDIOVASCULAR: Normal rate and regular rhythm without murmurs, gallops, or rubs. RESPIRATORY: Good respiratory efforts. Breath sounds equal and clear to auscultation bilaterally. GASTROINTESTINAL: Abdomen soft, non-tender, non-distended. Normal active bowel sounds MUSCULOSKELETAL: Extremities without cyanosis, or edema. NEURO: Alert & Oriented x4 to person, place, time, situation. Moves all ext x4 PSYCH: Appropriate mood and affect. A/P Problem List: (1) Syncope ICD Code: R55 - Syncope and collapse Status: Acute (2) Unstable angina ICD Code: I20.0 - Unstable angina Status: Acute (3) Coronary artery disease ICD Code: I25.10 - Atherosclerotic heart disease of [place] coronary artery without angina pectoris (4) Tobacco abuse ICD Code: Z72.0 - Tobacco use (5) Sudden cardiac arrest ICD Code: I46.9 - Cardiac arrest, cause unspecified Assessment and Plan 66-year-old male who had what sounds like a sudden cardiac arrest at home and probably revived by his . Patient found to have significant coronary artery disease. Cardiology following. Unstable angina/CAD - s/p OM1 stents x 3 05/10/17 - Further intervention for significant RCA disease planned for today by Dr. Smith - beta-john was also held due to bradycardia - atorvastatin, Plavix, aspirin, and analgesia per Dr. Smith -Patient has statin allergy Tobacco abuse - The patient is a heavy smoker and is unable to have a nicotine patch - Cessation is advised -Ativan 0.5 mg p.o. every 6 hours as needed anxiety ordered to help with anxiety from nicotine withdrawal Mild renal insufficiency secondary to mild dehydration -Resolved. DVT prophylaxis -Encourage ambulation. For repeat cath today. Discharge Planning Heart catheterization today. Problem Qualifiers (1) Syncope: Qualified Codes: R55 - Syncope and collapse Gil Pulido MD May 13, 2017 12:19
[2017-05-13] MEDS ORDERED: MISC INFORMATION XX ONE (14:00)
--- NOTE | 2017-05-13 14:02 | CATHPROC ---
Radialpoint HIS Report Study Information Study Number Admission Scheduled Start Study Start [id number] May 10 2017 5:18PM 05/12/2017 May 13 2017 12:17PM [place] Service Cardiac Catheterization Admit Source Facility Department Emergency department [facility] - Supervisor Body Assembly Physician and Clinical Staff Initial Buck Mahoney Freight Unloader Roselia Acosta RN Recorder Carey Padilla BSN Scrub Hostswathi, Gal,RT(R) Procedures Performed Procedure Location (Site) Vessel Name Coronary Angiograms LCA Left Coronary Drug Eluting Inflatio RCA Dist Right Coronary Drug Eluting Inflatio RCA Mid Right Coronary L Heart Cath PTCA RCA Dist Right Coronary PTCA RCA Mid Right Coronary Wire insertion Radial (right) Radial Art. Equipment Time Rectangular Tank Cooper Description Size Mfg Part Number Used/Scraped WIRE, BALANCE MIDDLEWEIGHT [id number] 12:40 [employer] 190CM Used 190CM *[id number] TRANSDUCER, TRUWAVE [id number] 12:41 RODRIGUEZ CAMILO * Used W/STOCKCOCK *[id number] *[id number] 12:41 [employer]ure PACK, CCL CUSTOM * Used *[id number] 12:41 [employer] SUPPORT, ARTERIAL ADULT 35714 *[id number] Used BALLOON, 2.25 X 6MM NC [id number] 13:11 MEDTRONIC 6MM Used EUPHORA *[id number] BALLOON, 3.0 X 8MM NC [id number] 13:22 MEDTRONIC 8MM Used EUPHORA *[id number] 13:37 MEDTRONIC JL 3.5 DXTERITY CATHETER FR 5 Used *[id number] 13:04 MEDTRONIC STENT, 2.25 12MM ALICIA 2.25 12MM Used *[id number] 13:18 MEDTRONIC STENT, 2.75 15MM ALICIA 2.75 15MM Used *[id number] 13:08 iPositioning MEDICAL 30 [place] INDEFLATOR Used *[id number] BAND, RADIAL COMPRESSION TR [id number] 13:42 [employer]Positioning MEDICAL 24CM Used SHORT 24 *[id number] 12:41 [employer]Positioning MEDICAL WIRE, EXCHANGE 260CM 3MMJ 260CM Used *[id number] 12:41 NAMIC MANIFOLD, 4 PORT * Used *[id number] 12:41 NYCOMED OMNIPAQUE, 350 MG, 150ML 150ML [id number] Used 13:20 NYCOMED OMNIPAQUE, 350 MG, 150ML 150ML [id number] Used 13:20 NYCOMED OMNIPAQUE, 350 MG, 150ML 150ML [id number] Used [id number] 12:41 [place] [employer],WARM AIR CCL * Used *[id number] SHEATH, FR6 TRANSRADIAL [id number] 12:42 [employer] FR 6 Used SLENDER 10CM *[id number] Equipment Model, Serial, Lot Number and Expiration Data Description Model Number Serial Number Lot Number Expiration Date BALLOON, 2.25 X 6MM NC [id number] 11-20-2018 EUPHORA BALLOON, 3.0 X 8MM NC EUPHORA [id number] 12-28-2018 STENT, 2.25 12MM ALICIA [id number] 01-15-2019 STENT, 2.75 15MM ALICIA [id number] 01-14-2019 History: Current Medications Medication Dosage/Unit Route Frequency Last Date/Time Taken ASA BRILINTA History: Allergies Allergy Reaction penicillin G Swelling Irfxsaq-Jrw-Oue Reductase Inhibitor History: Risk Factors Family History of Hypertension Dyslipidemia Previous RI Previous Heart Failure Premature CAD No Yes Yes No No Prior Valve Prior PCI Prior PCIDate Prior CABG Surgery No Yes 05/10/2017 No Cerebrovascular Peripheral Artery Chronic Lung On Dialysis Diabetes Disease Disease Disease No No No No No History: CV Disease Selection Items Known CAD History: Stress Tests Stress or Imaging Studies Performed No History: RI/CV Data Previous Cath Date 05/10/2017 History: Other Current Smoker Method Packs a Day Years Used Pack Years Yes Cigarettes 2 50 100 Labs Hgb (g/dl) Hct (%) WBC (l/cumm) Platelets (thousands) 11.60-17.00 35.00-51.00 4.00-11.00 150.00-450.00 14.5 42.3 9.4 139 Glucose (mg/dl) BUN (mg/dl) Creatinine (mg/dl) BUN:Creatinine (1:x) 74.00-106.00 7.00-18.00 0.50-1.30 10.00-20.00 95 10 0.8 12.5 Na (meq/l) K (meq/l) 136.00-145.00 3.50-5.10 136 3.7 INR (PTT:PT) 0.90-1.10 1 Troponin I (ng/ml) 0.02-0.05 0.02 Medication Medication Total Dose (Bolus/Oral) Medication Total Dosage/Unit 1% XYLOCAINE 3 mL FENTANYL 25 mcg HEPARIN 4600 units RADIAL COCKTAIL 5 mL (Bolus) VERSED 0.5 mg Medications (Bolus/Oral) Medication Time Given Dosage/Unit Administered By Reason VERSED 05/13/2017 12:46:07 PM 0.5 mg Roselia Acosta 0.5 mg VERSED given in lab by Roselia Acosta RN in Left Antecubital via Peripheral IV. Ordered by Buck Andres FENTANYL 05/13/2017 12:47:09 PM 25 mcg Roselia Acosta 25 mcg FENTANYL given in lab by Roselia Acosta RN in Left Antecubital via Peripheral IV. Ordered by Buck Simth 1% XYLOCAINE 05/13/2017 12:47:47 PM 3 mL Buck Smith 3 mL 1% XYLOCAINE given in lab by Buck Smith in Right Radial via Subcutaneous. Ordered by Buck Ng RADIAL COCKTAIL 05/13/2017 12:49:51 PM 5 mL (Bolus) Buck Smith 5 mL (Bolus) RADIAL COCKTAIL given in lab by Buck Smith via Radial. Ordered by Shilpi Smith Reason: Ntg 200mcg Verapamil 2.5mg Heparin 3200U. HEPARIN 05/13/2017 12:54:06 PM 4600 units Roselia Acosta 4600 units HEPARIN given in lab by Roselia Acosta RN in Left Antecubital via Peripheral IV. Ordered by Buck Smith Medication (Drip) Medication Time Given Dosage/Unit Concentration/Unit Diluent (ml) Solution IV Solutions 05/13/2017 12:28:01 PM 50 mL (IV) NaCl .9 IV Solutions given in lab by Roselia Acosta RN via Peripheral IV. Pump/Drip Flow using NaCl .9. Ord ered by Buck Smith Initial Case Assessment Cardiovascular HR Rhythm NIBP Chest Pain 68 sr 151/94 0 Edema Present Skin color Skin None Normal Warm Dry Circulatory - Right Pulses Dorsalis Pedis Femoral Radial 1 2 3 Scale (0,1,2,3,4,d) Circulatory - Left Pulses Dorsalis Pedis Femoral Radial 1 1 Scale (0,1,2,3,4,d) Circulatory - Lower Extremities Color Lower Right Color Lower Left Normal Normal Neurological State Oriented to time-place- Alert Moves all extremities person Respiration - General Respiration Rate SpO2 (%) O2 (lpm) (B/min) 15 98 0 Final Case Assessment Cardiovascular HR Rhythm NIBP Chest Pain 72 sr 147/95 0 Edema Present Skin color Skin None Normal Warm Dry Circulatory - Right Pulses Dorsalis Pedis Femoral Radial 1 2 3 Scale (0,1,2,3,4,d) Circulatory - Left Pulses Dorsalis Pedis Femoral Radial 1 1 Scale (0,1,2,3,4,d) Circulatory - Lower Extremities Color Lower Right Color Lower Left Normal Normal Neurological State Oriented to time-place- Alert Moves all extremities person Respiration - General Respiration Rate SpO2 (%) O2 (lpm) (B/min) 11 99 0 Chronological Log Time Study Chronological Log 12:12:07 Patient arrived via Bed. 12:12:12 Patient Name, D.O.B, / Armband Verified By R.N. 12:13:15 Consent signed by the physician and the patient and verified by the Supervisor Body Assembly staff. 12:17:21 Verbal Stimulation=2 Physical Stimulation=2 Airway=2 Respiration=2 TOTAL=8. (0=absent, 1=li mited, 2=present) 12:17:35 Presedation assessment performed by Supervisor Body Assembly RN. 12:17:37 Allens test performed on the right radial and ulnar artery. 12:17:39 Patient has been NPO for More than 6Hrs. 12:17:39 Skin Breakdown- none per patient 12:18:12 A # 20 IV was noted in the Antecubital (right). Grade = 0 Vitals capture started with the following parameters, Patient=Adult, Interval=5 min, Initial Pr osyxxy=155 mmHg, 12:18:27 Deflation Rate=5 mmHg, Cuff placed on Right Ankle 12:18:50 A # 20 IV was noted in the Antecubital (left). Grade = 0 12:18:57 HR=66 bpm, JCYI=498/88 mmhg, Resp=12 B/min, Pain=0, Dung=10, Mathews=2 12:23:54 HR=83 bpm, MGNY=647/101 mmhg, SpO2=99.0 %, Resp=16 B/min, Pain=0, Dung=10, Mathews=2 IV Solutions given in lab by Roselia Acosta, RN via Peripheral IV. Pump/Drip Flow using NaCl . 9. Ordered by Luis, 12:28:01 Buck Vitale 12:28:14 History and physical on the chart or being dictated. 12:28:18 Right Radial and groin(s) prepped with 2% chlorhexidine, and draped after a 3 min. waiting time. Assessment: Initial Case, HR=68 BPM, Rhythm=sr, WYNE=208/94 mmhg, Chest Pain=0, Edema=None, Col or=Normal, Skin = Warm, Dry Right Pulses: Eugenio Ped=1, Femoral=2, Radial=3 Left Pulses: Eugenio Ped=1, Femoral=1 12:28:24 Lower Right Extremities: Color=Normal Lower Left Extremities: Color=Normal Neurological: State=Alert, Ox3, RENEE Respiration: Resp=15 B/min, SpO2=98 %, O2=0 lpm 12:29:30 HR=73 bpm, FTIA=566/94 mmhg, SpO2=98 %, Resp=11 B/min, Pain=0, Dung=10, Mathews=2 12:30:03 Reference ECG taken 12:31:00 Patient Warmer Placed on the Table. 12:33:18 paged 12:33:51 Pressure channel 1 zeroed. 12:33:58 HR=66 bpm, DEUV=077/87 mmhg, JwO6=717.0 %, Resp=10 B/min, Pain=0, Dung=10, Mathews=2 12:38:55 HR=66 bpm, PFFV=345/88 mmhg, Resp=17 B/min, Pain=0, Dung=10, Mathews=2 12:39:42 MD arrived. 12:41:43 Immediate Presedation assesment performed by physician. 12:43:56 HR=66 bpm, HJGK=422/86 mmhg, SpO2=97 %, Resp=13 B/min, Pain=0, Dung=10, Mathews=2 0.5 mg VERSED given in lab by Roselia Acosta, RN in Left Antecubital via Peripheral IV. Ordere d by Buck Smith 12:46:07 Carlyle. Time Out. Correct patient, correct procedure, correct physician, power injector not loaded with contrast with surgical 12:46:39 team present. Time Out Concurred by MD and individual staff in procedure. 12:46:58 Case Start 25 mcg FENTANYL given in lab by Roselia Acosta, KATIE in Left Antecubital via Peripheral IV. Orde red by Luis, 12:47:09 Buck Vitale 3 mL 1% XYLOCAINE given in lab by Buck Smith in Right Radial via Subcutaneous. Ordered by Luis 12:47:47 Buck Vitale 12:48:58 HR=66 bpm, OMWL=421/88 mmhg, SpO2=98.0 %, Resp=13 B/min, Pain=0, Dung=10, Mathews=2 12:49:16 Access site was right Radial Artery. A SHEATH, FR6 TRANSRADIAL SLENDER 10CM FR 6 was advanced into the Radial (right) using the Perc utaneous 12:49:31 technique. 5 mL (Bolus) RADIAL COCKTAIL given in lab by Buck Smith via Radial. Ordered by Buck Betts 12:49:51 Reason: Ntg 200mcg Verapamil 2.5mg Heparin 3200U. A AL .75 GUIDE CATHETER FR 6 was advanced over a wire. OMNIPAQUE, 350 MG, 150ML 150ML was used for 12:50:29 injections. Recorded Pressure: Ao, HR=71, Condition=Condition 1 12:53:14 (Aorta) Ao 111/67/87 12:54:01 HR=75 bpm, AQSJ=420/79 mmhg, SpO2=97.0 %, Resp=12 B/min, Pain=0, Dung=10, Mathews=2 4600 units HEPARIN given in lab by Roselia Acosta, KATIE in Left Antecubital via Peripheral IV. O rdered by Luis, 12:54:06 Buck Vitale 12:54:16 A WIRE, BALANCE MIDDLEWEIGHT 190CM 190CM was inserted via Radial (right). 12:58:58 HR=68 bpm, JLDE=369/75 mmhg, SpO2=96 %, Resp=12 B/min, Pain=0, Dung=10, Mathews=2 13:00:03 Interventional wire has crossed the lesion 13:01:33 Activated Clotting Time Drawn 13:03:55 HR=72 bpm, QLTP=206/91 mmhg, SpO2=97 %, Resp=10 B/min, Pain=0, Dung=10, Mathews=2 A STENT, 2.25 12MM ALICIA 2.25 12MM was advanced through a AL .75 GUIDE CATHETER FR 6 over a WIRE , BALANCE 13:06:04 MIDDLEWEIGHT 190CM 190CM. A STENT, 2.25 12MM ALICIA 2.25 12MM was deployed using a 30 [place] INDEFLATOR at 14 atmospheres for 30 seconds 13:07:27 in the RCA Dist. 13:07:53 ACT (Normal Range 90-180) = 349 13:08:43 Delivery device removed 13:09:31 HR=67 bpm, NJRI=270/82 mmhg, SpO2=98.0 %, Resp=11 B/min, Pain=0, Dung=10, Mathews=2 A BALLOON, 2.25 X 6MM NC EUPHORA 6MM was inserted over WIRE, BALANCE MIDDLEWEIGHT 190CM 190CM v ia the 13:13:29 Radial (right). A BALLOON, 2.25 X 6MM NC EUPHORA 6MM over a WIRE, BALANCE MIDDLEWEIGHT 190CM 190CM in the RCA D ist 13:13:37 was inflated using a 30 [place] INDEFLATOR at 18 [place] for 20 sec. 13:13:59 HR=71 bpm, SKZQ=828/93 mmhg, SpO2=98 %, Resp=20 B/min, Pain=0, Dung=10, Mathews=2 13:14:59 Balloon Removed. 13:19:00 HR=71 bpm, CTGN=447/92 mmhg, SpO2=99 %, Resp=10 B/min, Pain=0, Dung=10, Mathews=2 A STENT, 2.75 15MM ALICIA 2.75 15MM was advanced through a AL .75 GUIDE CATHETER FR 6 over a WIRE , BALANCE 13:19:35 MIDDLEWEIGHT 190CM 190CM. A STENT, 2.75 15MM ALICIA 2.75 15MM was deployed using a 30 [place] INDEFLATOR at 14 atmospheres for 20 seconds 13:20:16 in the RCA Mid. 13:20:57 Delivery device removed A BALLOON, 3.0 X 8MM NC EUPHORA 8MM was inserted over WIRE, BALANCE MIDDLEWEIGHT 190CM 190CM vi a the 13:23:15 Radial (right). 13:24:01 HR=69 bpm, BZZY=646/85 mmhg, SpO2=99.0 %, Resp=12 B/min, Pain=0, Dung=10, Mathews=2 A BALLOON, 3.0 X 8MM NC EUPHORA 8MM over a WIRE, BALANCE MIDDLEWEIGHT 190CM 190CM in the RCA Mi d was 13:24:21 inflated using a 30 [place] INDEFLATOR at 16 [place] for 20 sec. A BALLOON, 3.0 X 8MM NC EUPHORA 8MM over a WIRE, BALANCE MIDDLEWEIGHT 190CM 190CM in the RCA Mi d was 13:24:34 inflated using a 30 [place] INDEFLATOR at 14 [place] for 10 sec. A BALLOON, 3.0 X 8MM NC EUPHORA 8MM over a WIRE, BALANCE MIDDLEWEIGHT 190CM 190CM in the RCA Mi d was 13:25:21 inflated using a 30 [place] INDEFLATOR at 16 [place] for 10 sec. 13:27:56 Balloon Removed. 13:29:00 HR=71 bpm, AQSH=095/98 mmhg, SpO2=99 %, Resp=11 B/min, Pain=0, Dung=10, Mathews=2 A BALLOON, 3.0 X 8MM NC EUPHORA 8MM was inserted over WIRE, BALANCE MIDDLEWEIGHT 190CM 190CM vi a the 13:29:28 Radial (right). A BALLOON, 3.0 X 8MM NC EUPHORA 8MM over a WIRE, BALANCE MIDDLEWEIGHT 190CM 190CM in the RCA Mi d was 13:29:49 inflated using a 30 [place] INDEFLATOR at 18 [place] for 10 sec. A BALLOON, 3.0 X 8MM NC EUPHORA 8MM over a WIRE, BALANCE MIDDLEWEIGHT 190CM 190CM in the RCA Mi d was 13:30:27 inflated using a 30 [place] INDEFLATOR at 20 [place] for 20 sec. A BALLOON, 3.0 X 8MM NC EUPHORA 8MM over a WIRE, BALANCE MIDDLEWEIGHT 190CM 190CM in the RCA Mi d was 13:31:46 inflated using a 30 [place] INDEFLATOR at 20 [place] for 10 sec. A BALLOON, 3.0 X 8MM NC EUPHORA 8MM over a WIRE, BALANCE MIDDLEWEIGHT 190CM 190CM in the RCA Mi d was 13:32:35 inflated using a 30 CHE[place]NE INDEFLATOR at 20 [place] for 10 sec. 13:33:00 Balloon Removed. 13:34:01 HR=70 bpm, BPTM=148/94 mmhg, SpO2=99.0 %, Resp=10 B/min, Pain=0, Dung=10, Mathews=2 13:34:40 Wire removed After removing the current catheter a JL 3.5 DXTERITY CATHETER FR 5 was advanced over a WIRE, E XCHANGE 260CM 13:37:18 3MMJ 260CM. 13:39:02 HR=68 bpm, MEVT=262/95 mmhg, SpO2=99.0 %, Resp=11 B/min, Pain=0, Dung=10, Mathews=2 13:39:07 The LCA was injected and visualized at various angles. OMNIPAQUE, 350 MG, 150ML 150ML used . 13:40:35 Catheter(s) removed without difficulty 13:40:40 Case End Assessment: Final Case, HR=72 BPM, Rhythm=sr, DKYM=933/95 mmhg, Chest Pain=0, Edema=None, [place] r=Normal, Skin = Warm, Dry Right Pulses: Eugenio Ped=1, Femoral=2, Radial=3 Left Pulses: Eugenio Ped=1, Femoral=1 13:41:00 Lower Right Extremities: Color=Normal Lower Left Extremities: Color=Normal Neurological: State=Alert, Ox3, RENEE Respiration: Resp=11 B/min, SpO2=99 %, O2=0 lpm 13:41:39 No case complications noted. 13:41:41 Cine recording checked. 13:42:11 [facility]IC called. Spoke to Noelle 13:42:21 Bedside Report will be given. Radial Compression Device Used. 13 mLs of air placed in BAND, RADIAL COMPRESSION TR SHORT 24 2 4CM. Affected 13:42:52 hand 99 % O2 saturation. 13:43:58 A Left Heart Cath was performed. 13:44:03 HR=70 bpm, YJEB=626/88 mmhg, SpO2=99.0 %, Resp=14 B/min, Pain=0, Dung=10, Mathews=2 13:51:38 Vitals capture stopped. 13:51:46 Patient moved to stretcher End Study - Contrast Media Used In Study Contrast Total Opened (mL) Total Used (mL) Total Wasted (mL) Omnipaque 130 130 0 End Study - Maximum Contrast Load Max Contrast Load (mL) 488.6 End Study - Radiation Exposure Fluoro Time (minutes) 13.4 End Study - Patient Disposition Complications Transferred To Interventional Outcome No Telemetry Bed successful
[2017-05-13] MEDS ORDERED: IOHEXOL 350 MG/ML 50 ML BTL (for Cath Lab) OTHER ONE (14:43)
[2017-05-13] MEDS ORDERED: IOHEXOL 350 MG/ML 100 ML BTL (for Cath Lab) OTHER ONE (14:43)
--- NOTE | 2017-05-13 18:09 | PD.CARD.PN ---
Subjective Subjective Remarks No events overnight [place] a little SOB this morning, not as much as yesterday Post-PCI Objective Medications Current Medications Medications (Trade) Dose Ordered Sig/Wolf Route Start Time Stop Time Status Last Admin (NS Flush) 2 ml UNSCH PRN IVF 05/10/17 12:45 (Tylenol) 325 mg Q4H PRN PO 05/10/17 16:45 (Percocet 5-325 Mg) 1 tab Q4H PRN PO 05/10/17 16:45 (Percocet 10-325 Mg) 1 tab Q4H PRN PO 05/10/17 16:45 (Morphine Inj) 2 mg Q30M PRN IV PUSH 05/10/17 16:45 (Restoril) 15 mg HS PRN PO 05/10/17 16:45 05/12/17 23:18 (Zofran Inj) 4 mg Q6H PRN IVP 05/10/17 16:45 (Aspirin Chew) 81 mg DAILY PO 05/11/17 09:00 05/13/17 08:02 (Ativan) 0.5 mg Q6H PRN PO 05/10/17 21:15 05/13/17 10:19 (Prinivil) 5 mg DAILY PO 05/12/17 09:00 05/13/17 08:01 (Brilinta) 90 mg BID PO 05/12/17 21:00 05/13/17 08:02 (Nitrostat Sl) 0.4 mg Q5M PRN SL 05/12/17 11:30 Vital Signs / I&O Vital Signs Date Time Temp Pulse Resp B/P (MAP) Pulse Ox O2 Delivery O2 Flow Rate FiO2 05/13/17 15:01 98.4 76 18 129/88 (102) 99 05/13/17 11:01 97.8 70 18 115/80 (92) 96 05/13/17 08:01 98.5 75 18 126/81 (96) 96 05/13/17 06:00 72 05/13/17 05:00 78 05/13/17 04:00 73 05/13/17 03:37 98.0 78 14 139/81 (100) 97 05/13/17 03:00 72 05/13/17 02:00 99 05/13/17 01:00 83 05/13/17 00:00 93 05/12/17 23:00 98.2 75 14 144/86 (105) 99 05/12/17 23:00 75 05/12/17 22:00 91 05/12/17 21:00 92 05/12/17 20:00 75 05/12/17 20:00 98.0 77 16 131/93 (106) 99 05/12/17 19:00 77 05/12/17 18:23 73 I/O 05/12/17 05/12/17 05/12/17 05/13/17 05/13/17 05/13/17 07:00 15:00 23:00 07:00 15:00 23:00 Intake Total 930 ml 960 ml 360 ml 450 ml Output Total 1150 ml 750 ml 1125 ml Balance -220 ml 210 ml -765 ml 450 ml Intake Oral 930 ml 960 ml 360 ml IV Total 450 ml Output Urine Total 1150 ml 750 ml 1125 ml Physical Exam GENERAL: NAD, AAOx3 SKIN: Warm and dry. HEAD: Atraumatic. Normocephalic. EYES: Pupils equal and round. No scleral icterus. No injection or drainage. ENT: No nasal bleeding or discharge. Mucous membranes pink and moist. NECK: Trachea midline. No JVD. CARDIOVASCULAR: Regular rate and rhythm. RESPIRATORY: No accessory muscle use. Clear to auscultation. Breath sounds equal bilaterally. GASTROINTESTINAL: Abdomen soft, non-tender, nondistended. Hepatic and splenic margins not palpable. MUSCULOSKELETAL: Extremities without clubbing, cyanosis, or edema. No obvious deformities. Right radial no hematoma, neurovascularly intact distally NEUROLOGICAL: Awake and alert. No obvious cranial nerve deficits. Motor grossly within normal limits. Five out of 5 muscle strength in the arms and legs. Normal speech. PSYCHIATRIC: Appropriate mood and affect; insight and judgment normal. 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
[2017-05-13] MEDS: TEMAZEPAM 15 MG CAP PO PRN (21:48)
[2017-05-14] VITALS (15 sets, daily range): BP systolic 104–130; BP diastolic 64–79; PULSE 67–94; RESP 16–18; TEMP 97.9–98.8; O2SAT 97–100
--- NOTE | 2017-05-14 00:36 | EKG ---
Date Performed: 05/12/2017 Time Performed: 10:30:48 PTAGE: 66 years EKG: Sinus rhythm Extensive ST-T changes suggest myocardial injury/ischemia Abnormal ECG PREVIOUS TRACING : 05/10/2017 12.37 DOCTOR: Jen Todd Interpretating Date/Time 05/14/2017 00:20:35
[2017-05-14 07:26] LABS: AUTOMATED NEUTROPHIL # 5.8 TH/MM3 (1.8-7.7); BASOPHIL % 0.5 % (0.0-2.0); EOSINOPHIL # 0.1 TH/MM3 (0-0.4); EOSINOPHIL % 1.3 % (0.0-4.0); HEMATOCRIT 43.6 % (39.0-51.0); HEMOGLOBIN 14.8 GM/DL (13.0-17.0); LYMPH % 22.1 % (9.0-44.0); LYMPHOCYTE # 1.9 TH/MM3 (1.0-4.8); MEAN CELL VOLUME 91.5 FL (80.0-100.0); MEAN CORPUSCULAR HEMOGLOBIN 31.1 PG (27.0-34.0); MONO % 8.5 % (0.0-8.0); MONOCYTE # 0.7 TH/MM3 (0-0.9); NEUT % 67.6 % (16.0-70.0); PLATELET COUNT 153 TH/MM3 (150-450); RED BLOOD COUNT 4.76 MIL/MM3 (4.50-5.90); RED CELL DISTRIBUTION WIDTH 14.1 % (11.6-17.2); WHITE BLOOD COUNT 8.5 TH/MM3 (4.0-11.0)
[2017-05-14 07:45] LABS: BICARBONATE 20.1 MEQ/L (21.0-32.0); CALCIUM 8.5 MG/DL (8.5-10.1)
[2017-05-14] MEDS: LISINOPRIL 5 MG TAB PO SCH (08:55)
[2017-05-14] MEDS: TICAGRELOR 90 MG TAB PO SCH (08:55)
[2017-05-14] MEDS: ASPIRIN 81 MG CHEW TAB PO SCH (08:56)
--- NOTE | 2017-05-14 09:39 | MA ---
cc: Buck Smith DO DATE: 05/13/2017 PROCEDURE PERFORMED: Coronary angiogram, moderate sedation, 53 minutes, [place] drug-eluting stent (2.25 x [12) posterolateral branch, [place] drug-eluting stent (2.75 x 15) to the RCA. PREPROCEDURE DIAGNOSIS: Unstable angina, probable aborted sudden cardiac . POSTPROCEDURE DIAGNOSIS: [place] drug-eluting stent (2.25 x 12) to the posterolateral branch, [place] drug-eluting stent (2.75 x 15) to the right coronary artery. MEDICATIONS: Versed 0.5 mg, fentanyl 25 mcg, heparin 7800 units, nitroglycerine 200 mcg, verapamil 2.5 mg. CONTRAST USED: 130 mL. FLUOROSCOPY: 13.4 minutes. SEDATION: Moderate sedation, 53 minutes. ESTIMATED BLOOD LOSS: 10 mL. PROCEDURAL SUMMARY : Aravind Richardson is a pleasant 66-year-old male who presented with unstable angina and a syncopal episode to [facility] on 05/10/2017. He underwent cardiac catheterization and was found to have an occluded left circumflex, but also a 90% lesion in his PLB. He previously underwent PCI of his left circumflex/obtuse marginal and he is back for a staged procedure of his posterolateral branch. Risks, benefits and alternatives were explained to him and he consented to such. He was brought to the lab and prepped in the usual sterile fashion. The right radial artery was accessed using a modified Seldinger technique and placement of a 5/6 [place] slender sheath. This was easily aspirated and flushed. An 0.75 guide was engaged in the right coronary artery. Heparin was given as an anticoagulant. A BMW wire was advanced into the distal posterolateral branch. An [place] drug-eluting stent (2.25 x 12) was then inflated over the posterolateral branch lesion. This was dilated with a noncompliant balloon (2.25 x 8). He also has a lesion of around 70% in the mid portion of the RCA and I thought it reasonable to fix at this time and so an [place] drug-eluting stent (2.75 x 15) was then placed over the lesion and inflated. This was postdilated with a noncompliant balloon (3.0) and then the mid portion was postdilated with a noncompliant balloon (3.25). Final angiogram shows well opposed stents with no perforations or dissections. The wire and guide were removed. A JL 3.5 was then placed and angiogram of the left coronary artery system was done, as his previous stents were placed there and he has a known small dissection in the distal vessel. This was removed over a J wire. A radial band was placed over the arteriotomy site for hemostasis. 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 FINDINGS: Left circumflex/obtuse marginal stents patent, with no perforation noted. Distal dissection appears to have no flow-limiting status. RCA 50% lesion in the proximal portion, 70% lesion in the mid portion, 90% lesion in the posterolateral branch. IMPRESSION: 1. Unstable angina, status post previous stenting of the left circumflex and obtuse marginal, staged procedure for stenting of the RCA and posterolateral branch as above. 2. Probable aborted sudden cardiac . RECOMMENDATIONS: 1. Mr. Richardson has undergone revascularization and he will be watched overnight and if stable in the morning, discharged home. 2. He has been started on aspirin and Brilinta therapy. Due to the significance of his disease, he should be on aspirin indefinitely and Brilinta for at least 12 months, but most likely longer if possible. 3. He has not been started on a beta john as his heart rates fluctuate between 50 and 65. 4. I have added DOROTHY inhibitor therapy. 5. He has significant intolerance to statins and has tried multiple statins. He will be recommended consideration of PCSK9 inhibitor outpatient. Thank you for allowing me to see Aravind Richardson. If there are any questions, please do not hesitate to call. DO GRETCHEN Farmer/EARNEST , 12:29 AM , 01:32 AM
[2017-05-14] MEDS ORDERED: ASPI81 PO (11:48)
[2017-05-14] MEDS ORDERED: VARE1PAK3 PO (11:48)
[2017-05-14] MEDS ORDERED: BRIL90TA PO (11:48)
[2017-05-14] MEDS ORDERED: LISI-519 PO (11:48)
--- NOTE | 2017-05-14 11:49 | HHI.DCPOC ---
Discharge Care Plan Diagnosis: (1) Coronary artery disease (2) Tobacco abuse (3) Unstable angina Goals to Promote Your Health * To prevent worsening of your condition and complications * To maintain your health at the optimal level Directions to Meet Your Goals Take your medications as prescribed Follow your dietary instruction Follow activity as directed Keep your appointments as scheduled Take your immunizations and boosters as scheduled If your symptoms worsen call your PCP, if no PCP go to Urgent Care Center or Emergency Room Smoking is Dangerous to Your Health. Avoid second hand smoke Call the 24-hour hour crisis hotline for domestic abuse at Gil Pulido MD May 14, 2017 11:49
--- NOTE | 2017-05-14 11:49 | HHI.DS ---
Discharge Summary Admission Date May 10, 2017 at 17:18 Admitting Diagnosis unstable angina (1) Syncope ICD Code: R55 - Syncope and collapse Status: Acute (2) Unstable angina ICD Code: I20.0 - Unstable angina Status: Acute (3) Coronary artery disease ICD Code: I25.10 - Atherosclerotic heart disease of [place] coronary artery without angina pectoris (4) Tobacco abuse ICD Code: Z72.0 - Tobacco use (5) Sudden cardiac arrest ICD Code: I46.9 - Cardiac arrest, cause unspecified Brief History - From Admission Mr. Richardson is a pleasant 66-year-old male who is here from [facility] for a wedding and has been experiencing severe and persistent symptoms of heartburn for the past 3 days. He used warm water and baking soda with some relief and Tums with no relief. Symptoms persisted and worsened with lying down. He states that earlier today, he developed diaphoresis, weakness, dizziness and experienced a syncopal episode. According to the ER doctor's dictation, the patient's had to give him rescue breathing following his collapse. When the patient awakened, he had severe intractable chest pain despite nitroglycerin and morphine. He had accompanying nausea without vomiting. The patient was taken to cardiac catheterization by Dr. Smith and was found to have severe coronary artery disease with the first obtuse marginal coronary artery requiring 3 stents. He also has significant RCA disease and that will be addressed with a cardiac catheterization and intervention on Saturday according to Dr. Smith's notes. The patient takes no routine medications at home. He has a primary care physician in [place] - Dr. Leonard Denis. The patient states that his primary care physician found calcification of heart vessels on imaging done about 2 years ago and recommended cardiology follow-up to him but he had other health concerns requiring specialty follow-up and was not having problems with his heart at the time so he never went to the heart doctor for follow-up. The patient has a history of diverticulosis, colitis, colon polyps, left kidney cyst , and degenerative disc disease. He denies any recent fevers, chills, shortness of breath, upper respiratory symptoms, vomiting, or diarrhea. CBC/BMP: 05/14/17 0638 05/14/17 0638 Significant Findings Laboratory Tests Test 05/12/17 04:47 05/14/17 06:38 Platelet Count 139 TH/MM3 (150-450) Neutrophils (%) (Auto) 71.8 % (16.0-70.0) Monocytes (%) (Auto) 8.4 % (0.0-8.0) 8.5 % (0.0-8.0) Calcium Level 8.3 MG/DL (8.5-10.1) Estimat Glomerular Filtration Rate 87 ML/MIN (>89) 75 ML/MIN (>89) Random Glucose 117 MG/DL (74-106) Sodium Level 135 MEQ/L (136-145) Carbon Dioxide Level 20.1 MEQ/L (21.0-32.0) PE at Discharge GENERAL: This is a well-nourished, well-developed patient, in no apparent distress. CARDIOVASCULAR: Normal rate and regular rhythm without murmurs, gallops, or rubs. RESPIRATORY: Good respiratory efforts. Breath sounds equal and clear to auscultation bilaterally. GASTROINTESTINAL: Abdomen soft, non-tender, non-distended. Normal active bowel sounds MUSCULOSKELETAL: Extremities without cyanosis, or edema. NEURO: Alert & Oriented x4 to person, place, time, situation. Moves all ext x4 PSYCH: Appropriate mood and affect. Pt Condition on Discharge: Good Discharge Disposition: Discharge Home Discharge Instructions DIET: Follow Instructions for: Heart Healthy Diet Activities you can perform: Regular-No Restrictions Gil Pulido MD May 14, 2017 11:49
--- NOTE | 2017-05-14 12:03 | PD.CARD.PN ---
Subjective Subjective Remarks No events overnight No chest pain/SOB Objective Medications Current Medications Medications (Trade) Dose Ordered Sig/Wolf Route Start Time Stop Time Status Last Admin (NS Flush) 2 ml UNSCH PRN IVF 05/10/17 12:45 05/14/17 08:57 (Tylenol) 325 mg Q4H PRN PO 05/10/17 16:45 (Percocet 5-325 Mg) 1 tab Q4H PRN PO 05/10/17 16:45 (Percocet 10-325 Mg) 1 tab Q4H PRN PO 05/10/17 16:45 (Morphine Inj) 2 mg Q30M PRN IV PUSH 05/10/17 16:45 (Restoril) 15 mg HS PRN PO 05/10/17 16:45 05/13/17 21:48 (Zofran Inj) 4 mg Q6H PRN IVP 05/10/17 16:45 (Aspirin Chew) 81 mg DAILY PO 05/11/17 09:00 05/14/17 08:56 (Ativan) 0.5 mg Q6H PRN PO 05/10/17 21:15 05/13/17 21:49 (Prinivil) 5 mg DAILY PO 05/12/17 09:00 05/14/17 08:55 (Brilinta) 90 mg BID PO 05/12/17 21:00 05/14/17 08:55 (Nitrostat Sl) 0.4 mg Q5M PRN SL 05/12/17 11:30 Vital Signs / I&O Vital Signs Date Time Temp Pulse Resp B/P (MAP) Pulse Ox O2 Delivery O2 Flow Rate FiO2 05/14/17 11:22 98.0 70 16 130/79 (96) 100 05/14/17 11:22 71 05/14/17 10:02 77 05/14/17 10:00 80 05/14/17 09:00 74 05/14/17 09:00 80 05/14/17 08:30 90 05/14/17 08:30 97.9 77 18 110/69 (83) 99 05/14/17 08:00 76 05/14/17 07:00 94 05/14/17 06:00 84 05/14/17 05:00 67 05/14/17 04:00 74 3/27/18 03:30 98.8 78 16 104/64 (77) 97 05/14/17 03:00 73 05/14/17 02:00 71 05/14/17 01:00 90 05/14/17 00:00 77 05/13/17 23:30 98.9 77 16 109/70 (83) 98 05/13/17 23:00 70 05/13/17 22:00 72 05/13/17 21:00 72 05/13/17 20:00 97.7 75 16 136/87 (103) 99 05/13/17 20:00 82 05/13/17 19:00 82 05/13/17 18:01 80 05/13/17 17:00 70 05/13/17 16:00 72 05/13/17 15:01 98.4 76 18 129/88 (102) 99 05/13/17 15:00 74 05/13/17 14:00 70 I/O 05/13/17 05/13/17 05/13/17 05/14/17 05/14/17 05/14/17 07:00 15:00 23:00 07:00 15:00 23:00 Intake Total 360 ml 450 ml 720 ml 240 ml Output Total 1125 ml 1350 ml 950 ml Balance -765 ml 450 ml -630 ml -710 ml Intake Oral 360 ml 720 ml 240 ml IV Total 450 ml Output Urine Total 1125 ml 1350 ml 950 ml # Voids 3 # Bowel Movements 0 0 Physical Exam GENERAL: NAD, AAOx3 SKIN: Warm and dry. HEAD: Atraumatic. Normocephalic. EYES: Pupils equal and round. No scleral icterus. No injection or drainage. ENT: No nasal bleeding or discharge. Mucous membranes pink and moist. NECK: Trachea midline. No JVD. CARDIOVASCULAR: Regular rate and rhythm. RESPIRATORY: No accessory muscle use. Clear to auscultation. Breath sounds equal bilaterally. GASTROINTESTINAL: Abdomen soft, non-tender, nondistended. Hepatic and splenic margins not palpable. MUSCULOSKELETAL: Extremities without clubbing, cyanosis, or edema. No obvious deformities. Right radial no hematoma, neurovascularly intact distally NEUROLOGICAL: Awake and alert. No obvious cranial nerve deficits. Motor grossly within normal limits. Five out of 5 muscle strength in the arms and legs. Normal speech. PSYCHIATRIC: Appropriate mood and affect; insight and judgment normal. Laboratory Laboratory Tests Test 05/14/17 06:38 White Blood Count 8.5 TH/MM3 Red Blood Count 4.76 MIL/MM3 Hemoglobin 14.8 GM/DL Hematocrit 43.6 % Mean Corpuscular Volume 91.5 FL Mean Corpuscular Hemoglobin 31.1 PG Mean Corpuscular Hemoglobin Concent 34.0 % Red Cell Distribution Width 14.1 % Platelet Count 153 TH/MM3 Mean Platelet Volume 9.0 FL Neutrophils (%) (Auto) 67.6 % Lymphocytes (%) (Auto) 22.1 % Monocytes (%) (Auto) 8.5 % Eosinophils (%) (Auto) 1.3 % Basophils (%) (Auto) 0.5 % Neutrophils # (Auto) 5.8 TH/MM3 Lymphocytes # (Auto) 1.9 TH/MM3 Monocytes # (Auto) 0.7 TH/MM3 Eosinophils # (Auto) 0.1 TH/MM3 Basophils # (Auto) 0.0 TH/MM3 CBC Comment DIFF FINAL Differential Comment Blood Urea Nitrogen 13 MG/DL Creatinine 1.00 MG/DL Random Glucose 117 MG/DL Calcium Level 8.5 MG/DL Sodium Level 135 MEQ/L Potassium Level 4.1 MEQ/L Chloride Level 105 MEQ/L Carbon Dioxide Level 20.1 MEQ/L Anion Gap 10 MEQ/L Estimat Glomerular Filtration Rate 75 ML/MIN Assessment and Plan Problem List: (1) Sudden cardiac arrest ICD Codes: I46.9 - Cardiac arrest, cause unspecified (2) Unstable angina ICD Codes: I20.0 - Unstable angina Status: Acute (3) Syncope ICD Codes: R55 - Syncope and collapse Status: Acute (4) Coronary artery disease ICD Codes: I25.10 - Atherosclerotic heart disease of [place] coronary artery without angina pectoris (5) Tobacco abuse ICD Codes: Z72.0 - Tobacco use Assessment and Plan 1) [place]/CAD s/p DESx3 to OM1, complex case s/p DESx2 to RCA/PDA ASA/Brilinta No Beta Santosh 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
== END 2017-05-14 12:18 | disposition home or self-care (01) | DRG 246 ==
LOC: NEPC 12:33 → NEDA 17:18 → HCIS 17:19
PROVIDERS: ADMIT Family Medicine; ATTEND Family Medicine
PROC: 027036Z Dilation of Coronary Artery, One Artery with Three Drug-eluting Intraluminal Devices, Percutaneous Approach (ICD-10-PCS; principal; 2017-05-10)
PROC: 4A023N7 Measurement of Cardiac Sampling and Pressure, Left Heart, Percutaneous Approach (ICD-10-PCS; 2017-05-10)
PROC: B2111ZZ Fluoroscopy of Multiple Coronary Arteries using Low Osmolar Contrast (ICD-10-PCS; 2017-05-10)
PROC: 027135Z Dilation of Coronary Artery, Two Arteries with Two Drug-eluting Intraluminal Devices, Percutaneous Approach (ICD-10-PCS; 2017-05-14)
DX: I25.110 Atherosclerotic heart disease of native coronary artery with unstable angina pectoris (principal); I25.82 Chronic total occlusion of coronary artery; E87.1 Hypo-osmolality and hyponatremia; R55 Syncope and collapse; F17.210 Nicotine dependence, cigarettes, uncomplicated; K57.90 Diverticulosis of intestine, part unspecified, without perforation or abscess without bleeding; M54.9 Dorsalgia, unspecified; M48.061 Spinal stenosis, lumbar region without neurogenic claudication; G89.29 Other chronic pain; N40.0 Benign prostatic hyperplasia without lower urinary tract symptoms; R00.1 Bradycardia, unspecified; E86.0 Dehydration; N28.9 Disorder of kidney and ureter, unspecified
CPT/HCPCS: 71045; 80048; 80053; 80061; 82550; 83036; 83735; 83880; 84484; 85002; 85025; 85610; 85730; 92928; 93005; 93306; 93454; 93458; 96374; 96375; 99152; 99153; C1725; C1769; C1874; C1887; C1893; J1644; J2250; J3010; J3246; J7030; Q9967